=== PATIENT | female | born 1970 | race Caucasian/White ===

== ENCOUNTER 2017-06-23 18:05 | Emergency (ER) | payer MEDICAID ==
[~2017-06-23] VITALS: Ht 160 cm; Wt 53.9 kg
[~2017-06-23 18:05] MED LIST: BUTA1CAP42 PO; CEPH500C5 PO; HYDR-569 PO; ONDA4TAB6 PO; SUCR1ORA2 PO
[2017-06-23 18:59] VITALS: BP 122/71
[2017-06-23 19:59] LABS: CLARITY,URINE CLEAR (Clear); COLOR,URINE YELLOW (Yellow); GLUCOSE, URINE NEGATIVE (Neg); KETONES,URINE NEGATIVE (Neg); LEUKOCYTE ESTERASE ,URINE NEGATIVE (Neg); NITRITES, URINE NEGATIVE (Neg); OCCULT BLOOD,URINE SMALL (Neg); PROTEIN,URINE NEGATIVE (Neg); UROBILINOGEN,URINE 0.2 E.U/dL (0.2-1.0)
[2017-06-23 20:22] LABS: UA COLLECTION TYPE CLN CATCH MIDSTREAM
[2017-06-23 20:43] LABS: BACTERIA,URINE FEW /HPF (Neg); MUCUS STRANDS FEW /LPF (Neg); RBC,URINE 0-2 /HPF (0-2); SQUAMOUS EPITHELIAL CELL,UR FEW /LPF (FEW); WBC,URINE 0-4 /HPF (0-4)
== END 2017-06-24 01:59 | disposition left against medical advice (07) ==
LOC: ER 18:06
DX: R10.9 Unspecified abdominal pain (principal); Z53.21 Procedure and treatment not carried out due to patient leaving prior to being seen by health care provider
CPT/HCPCS: 81001; 99281

== ENCOUNTER 2018-02-09 01:54 | Emergency (ER) | payer MEDICAID ==
[~2018-02-09] VITALS: Ht 162.6 cm; Wt 51.5 kg
[~2018-02-09 01:54] MED LIST changes: -CEPH500C5 PO; +HYDR-4383 PO; -HYDR-569 PO
[2018-02-09] MEDS ORDERED: normal saline 1000ML IV soln IVB ONE (02:20)
[2018-02-09] MEDS ORDERED: morphine 4 MG/ML inj SYRINge IV PRN (02:20)
[2018-02-09] MEDS ORDERED: ondansetron/PF 4mg/2ml inj IV ONE (02:20)
[2018-02-09 03:00] LABS: BASOPHILS % (AUTO) 0.3 % (0-1); EOSINOPHILS # (AUTO) 0.2 X10'3 (0-0.9); EOSINOPHILS % (AUTO) 1.6 % (0-6); HEMATOCRIT 36.6 % (35.0-45.0); HEMOGLOBIN 12.4 g/dl (12.0-16.0); LYMPHOCYTES # (AUTO) 2.1 X10'3 (1.1-4.8); LYMPHOCYTES % (AUTO) 14.3 % (21-51); MEAN CORPUSCULAR HEMOGLOBIN 33.3 PG (27.0-31.0); MEAN CORPUSCULAR HGB CONC 33.8 % (33.0-36.5); MEAN CORPUSCULAR VOLUME 98.5 FL (78-98); MEAN PLATELET VOLUME 8.1 FL (7.4-10.4); MONOCYTES # (AUTO) 0.9 X10'3 (0-0.9); MONOCYTES % (AUTO) 6.4 % (2-12); NEUTROPHILS # (AUTO) 11.5 X10'3 (1.8-7.7); NEUTROPHILS % (AUTO) 77.4 % (42-75); PLATELET COUNT 402 X10'3 (140-440); RED BLOOD COUNT 3.71 X10'6 (4.20-5.60); RED CELL DISTRIBUTION WIDTH 14.7 % (11.5-14.5); WHITE BLOOD COUNT 14.9 X10'3 (4.5-11.0)
[2018-02-09 03:01] LABS: CLARITY,URINE CLEAR (Clear); COLOR,URINE YELLOW (Yellow); GLUCOSE, URINE NEGATIVE (Neg); KETONES,URINE NEGATIVE (Neg); LEUKOCYTE ESTERASE ,URINE SMALL (Neg); NITRITES, URINE NEGATIVE (Neg); OCCULT BLOOD,URINE MODERATE (Neg); PH,URINE 5.5 (4.8-8.0); PROTEIN,URINE NEGATIVE (Neg); UROBILINOGEN,URINE 0.2 E.U/dL (0.2-1.0)
[2018-02-09 03:02] LABS: URINE HCG NEGATIVE (NEG)
[2018-02-09 03:07] LABS: UA COLLECTION TYPE CLN CATCH MIDSTREAM
[2018-02-09 03:08] LABS: SQUAMOUS EPITHELIAL CELL,UR MODERATE /LPF (FEW)
[2018-02-09 03:09] LABS: BACTERIA,URINE FEW /HPF (Neg); MUCUS STRANDS FEW /LPF (Neg); WBC,URINE 30-50 /HPF (0-4)
[2018-02-09 03:12] LABS: ALANINE AMINOTRANSFERASE 23 U/L (12-78); ALBUMIN 3.8 G/DL (3.4-5.0); ALBUMIN/GLOBULIN RATIO 1.1 (1.1-1.5); ALKALINE PHOSPHATASE 147 IU/L (46-116); ANION GAP 14 (8-16); ASPARTATE AMINO TRANSFERASE 21 U/L (10-37); BILIRUBIN,TOTAL 0.2 MG/DL (0.1-1.0); BLOOD UREA NITROGEN 11 MG/DL (7-18); BUN/CREATININE RATIO 10.2 (6.6-38.0); CALCIUM 8.6 MG/DL (8.5-10.1); CHLORIDE 108 MMOL/L (99-107); CREATININE 1.08 MG/DL (0.40-0.90); GLUCOSE 95 MG/DL (70-104); SODIUM 144 MMOL/L (135-145); TOTAL PROTEIN 7.3 G/DL (6.4-8.2); eGFR 54 ML/MIN
[2018-02-09 03:15] LABS: POTASSIUM 2.9 MMOL/L (3.5-5.1)
[2018-02-09] MEDS ORDERED: CefTRIAXone 2gm/D5W 50ml 50 ML IV ONE (03:20)
[2018-02-09] MEDS ORDERED: potassium Cl 20 mEq SR tablet PO ONE (03:20)
[2018-02-09 03:32] LABS: MAGNESIUM 1.8 MG/DL (1.5-2.4)
[2018-02-09] MEDS ORDERED: CEPH-572 PO (03:33)
[2018-02-09] MEDS ORDERED: ONDA4TAB9 PO (03:33)
[2018-02-09] MEDS ORDERED: magnesium hydroxide 30ml (MOM) UD suspension PO ONE (04:05)
[2018-02-09 04:17] VITALS: BP 110/84
[2018-02-09 09:17] LABS: OCCULT BLOOD STOOL NEGATIVE (Neg)
== END 2018-02-09 04:50 | disposition home or self-care (01) ==
LOC: ER 01:54
DX: N39.0 Urinary tract infection, site not specified (principal); E87.6 Hypokalemia; R91.1 Solitary pulmonary nodule; K52.9 Noninfective gastroenteritis and colitis, unspecified; G43.909 Migraine, unspecified, not intractable, without status migrainosus; G89.29 Other chronic pain; Z87.442 Personal history of urinary calculi; Z90.49 Acquired absence of other specified parts of digestive tract; Z90.710 Acquired absence of both cervix and uterus; Z98.890 Other specified postprocedural states
CPT/HCPCS: 36415; 74176; 80053; 81001; 81025; 82272; 83735; 85025; 87088; 96365; 96375; 99285; J0696; J2270; J2405

== ENCOUNTER 2018-03-14 13:09 | Emergency (ER) | payer MEDICAID ==
[~2018-03-14] VITALS: Ht 162.6 cm; Wt 53.0 kg
[2018-03-14 13:20] VITALS: BP 109/74
[2018-03-14] MEDS ORDERED: HYDR-4383 PO (15:34)
== END 2018-03-14 15:44 | disposition home or self-care (01) ==
LOC: ER 13:10
DX: S90.31XA Contusion of right foot, initial encounter (principal); G43.909 Migraine, unspecified, not intractable, without status migrainosus; I10 Essential (primary) hypertension; G89.29 Other chronic pain; Z79.899 Other long term (current) drug therapy; Z87.442 Personal history of urinary calculi; Z87.440 Personal history of urinary (tract) infections; Z90.49 Acquired absence of other specified parts of digestive tract; Z90.710 Acquired absence of both cervix and uterus; W11.XXXA Fall on and from ladder, initial encounter; Y93.89 Activity, other specified; Y92.89 Other specified places as the place of occurrence of the external cause; Y99.8 Other external cause status
CPT/HCPCS: 73630; 99283

== ENCOUNTER 2018-04-07 03:14 | Emergency (ER) | payer MEDICAID ==
[~2018-04-07] VITALS: Ht 160 cm; Wt 53.0 kg
[2018-04-07] MEDS ORDERED: ketorolac trometh inj. 60 MG/2 ML VIAL IM ONE (03:35)
[2018-04-07 03:49] LABS: COLOR,URINE YELLOW (Yellow); GLUCOSE, URINE NEGATIVE (Neg); KETONES,URINE NEGATIVE (Neg); LEUKOCYTE ESTERASE ,URINE LARGE (Neg); NITRITES, URINE NEGATIVE (Neg); OCCULT BLOOD,URINE TRACE-INTACT (Neg); PROTEIN,URINE NEGATIVE (Neg); UA COLLECTION TYPE CLN CATCH MIDSTREAM; UROBILINOGEN,URINE 0.2 E.U/dL (0.2-1.0)
[2018-04-07 03:50] LABS: CLARITY,URINE SLIGHTLY CLOUDY (Clear)
[2018-04-07 03:58] LABS: BACTERIA,URINE 2+ /HPF (Neg); MUCUS STRANDS FEW /LPF (Neg); RBC,URINE 0-2 /HPF (0-2); SQUAMOUS EPITHELIAL CELL,UR MANY /LPF (FEW)
[2018-04-07 04:34] LABS: ALANINE AMINOTRANSFERASE 29 U/L (12-78); ALBUMIN 3.7 G/DL (3.4-5.0); ALKALINE PHOSPHATASE 136 IU/L (46-116); ANION GAP 14 (8-16); ASPARTATE AMINO TRANSFERASE 27 U/L (10-37); BILIRUBIN,TOTAL 0.2 MG/DL (0.1-1.0); BLOOD UREA NITROGEN 9 MG/DL (7-18); BUN/CREATININE RATIO 10.1 (6.6-38.0); CHLORIDE 107 MMOL/L (99-107); CREATININE 0.89 MG/DL (0.40-0.90); GLUCOSE 97 MG/DL (70-104); LIPASE 105 U/L (73-393); POTASSIUM 3.3 MMOL/L (3.5-5.1); SODIUM 144 MMOL/L (135-145); TOTAL CARBON DIOXIDE 23.5 MMOL/L (24-32); TOTAL PROTEIN 7.3 G/DL (6.4-8.2); eGFR 68 ML/MIN
[2018-04-07 04:40] LABS: BASOPHILS % (AUTO) 0.5 % (0-1); EOSINOPHILS # (AUTO) 0.1 X10'3 (0-0.9); HEMATOCRIT 37.7 % (35.0-45.0); HEMOGLOBIN 12.6 g/dl (12.0-16.0); LYMPHOCYTES # (AUTO) 1.9 X10'3 (1.1-4.8); LYMPHOCYTES % (AUTO) 29.6 % (21-51); MEAN CORPUSCULAR HEMOGLOBIN 33.6 PG (27.0-31.0); MEAN CORPUSCULAR HGB CONC 33.4 % (33.0-36.5); MEAN CORPUSCULAR VOLUME 100.6 FL (78-98); MEAN PLATELET VOLUME 8.5 FL (7.4-10.4); MONOCYTES # (AUTO) 0.4 X10'3 (0-0.9); MONOCYTES % (AUTO) 6.3 % (2-12); NEUTROPHILS % (AUTO) 61.6 % (42-75); PLATELET COUNT 381 X10'3 (140-440); RED BLOOD COUNT 3.75 X10'6 (4.20-5.60); RED CELL DISTRIBUTION WIDTH 14.6 % (11.5-14.5); WHITE BLOOD COUNT 6.4 X10'3 (4.5-11.0)
[2018-04-07] MEDS ORDERED: HYDROcodone/acetaminophen 5mg/325mg tablet PO ONE (04:55)
[2018-04-07] MEDS ORDERED: ciprofloxacin 250mg tablet PO ONE (04:55)
[2018-04-07] MEDS ORDERED: potassium Cl 20 mEq SR tablet PO ONE (04:55)
[2018-04-07 04:58] VITALS: BP 116/68
[2018-04-07] MEDS ORDERED: CIPR-230 PO (05:07)
== END 2018-04-07 05:34 | disposition home or self-care (01) ==
LOC: ER 03:15
DX: R10.31 Right lower quadrant pain (principal); R10.10 Upper abdominal pain, unspecified; R31.9 Hematuria, unspecified; R11.2 Nausea with vomiting, unspecified; G43.909 Migraine, unspecified, not intractable, without status migrainosus; I10 Essential (primary) hypertension; G89.29 Other chronic pain; Z90.49 Acquired absence of other specified parts of digestive tract; Z90.710 Acquired absence of both cervix and uterus; Z98.890 Other specified postprocedural states; Z79.899 Other long term (current) drug therapy
CPT/HCPCS: 36415; 74018; 80053; 81001; 83690; 85025; 96372; 99284; J1885

== ENCOUNTER 2018-06-21 00:14 | Emergency (ER) | payer MEDICAID ==
[~2018-06-21] VITALS: Ht 160 cm; Wt 56.2 kg
[2018-06-21 00:50] LABS: COLOR,URINE YELLOW (Yellow); GLUCOSE, URINE NEGATIVE (Neg); KETONES,URINE NEGATIVE (Neg); LEUKOCYTE ESTERASE ,URINE TRACE (Neg); NITRITES, URINE NEGATIVE (Neg); OCCULT BLOOD,URINE TRACE-INTACT (Neg); PH,URINE 5.5 (4.8-8.0); PROTEIN,URINE NEGATIVE (Neg); UROBILINOGEN,URINE 0.2 E.U/dL (0.2-1.0)
[2018-06-21 00:56] LABS: CLARITY,URINE SLIGHTLY CLOUDY (Clear); UA COLLECTION TYPE CLN CATCH MIDSTREAM
[2018-06-21 00:57] LABS: BACTERIA,URINE 1+ /HPF (Neg); RBC,URINE 0-2 /HPF (0-2); SQUAMOUS EPITHELIAL CELL,UR FEW /LPF (FEW)
[2018-06-21 00:58] LABS: MUCUS STRANDS FEW /LPF (Neg); WBC CLUMPS,URINE FEW /HPF (NEGATIVE)
[2018-06-21 00:59] LABS: BASOPHILS # (AUTO) 0.1 X10'3 (0-0.2); BASOPHILS % (AUTO) 0.6 % (0-1); EOSINOPHILS # (AUTO) 0.1 X10'3 (0-0.9); EOSINOPHILS % (AUTO) 0.7 % (0-6); HEMATOCRIT 39.2 % (35.0-45.0); HEMOGLOBIN 13.1 g/dl (12.0-16.0); LYMPHOCYTES # (AUTO) 2.6 X10'3 (1.1-4.8); LYMPHOCYTES % (AUTO) 28.5 % (21-51); MEAN CORPUSCULAR HEMOGLOBIN 33.9 PG (27.0-31.0); MEAN CORPUSCULAR HGB CONC 33.4 g/dL (33.0-36.5); MEAN CORPUSCULAR VOLUME 101.6 FL (78-98); MEAN PLATELET VOLUME 7.9 FL (7.4-10.4); MONOCYTES # (AUTO) 0.6 X10'3 (0-0.9); MONOCYTES % (AUTO) 6.1 % (2-12); NEUTROPHILS # (AUTO) 5.8 X10'3 (1.8-7.7); NEUTROPHILS % (AUTO) 64.1 % (42-75); PLATELET COUNT 368 X10'3 (140-440); RED BLOOD COUNT 3.86 X10'6 (4.20-5.60); RED CELL DISTRIBUTION WIDTH 13.5 % (11.5-14.5); WHITE BLOOD COUNT 9.1 X10'3 (4.5-11.0)
[2018-06-21 00:59] LABS: URINE HCG NEGATIVE (NEG)
[2018-06-21 01:08] LABS: ALANINE AMINOTRANSFERASE 21 U/L (12-78); ALBUMIN 4.1 G/DL (3.4-5.0); ALBUMIN/GLOBULIN RATIO 1.1 (1.1-1.5); ALKALINE PHOSPHATASE 146 IU/L (46-116); AMYLASE 73 U/L (25-115); ANION GAP 10 (8-16); ASPARTATE AMINO TRANSFERASE 19 U/L (10-37); BILIRUBIN,TOTAL 0.2 MG/DL (0.1-1.0); BLOOD UREA NITROGEN 13 MG/DL (7-18); CALCIUM 9.1 MG/DL (8.5-10.1); CHLORIDE 109 MMOL/L (99-107); CREATININE 0.93 MG/DL (0.40-0.90); GLUCOSE 107 MG/DL (70-104); LIPASE 136 U/L (73-393); POTASSIUM 3.5 MMOL/L (3.5-5.1); SODIUM 145 MMOL/L (135-145); TOTAL CARBON DIOXIDE 25.9 MMOL/L (24-32); TOTAL PROTEIN 7.8 G/DL (6.4-8.2); eGFR 64 ML/MIN
[2018-06-21 01:09] LABS: PROTHROMBIN TIME 10.1 SECONDS (9.0-12.0)
[2018-06-21 02:08] LABS: PLATELET ESTIMATE NORMAL
[2018-06-21 02:41] LABS: ETHANOL < 0.010 GM/DL (0.0-0.010)
[2018-06-21 02:46] LABS: URINE AMPHETAMINE SCREEN NEGATIVE (Neg); URINE BARBITUATE SCREEN POSITIVE (Neg); URINE BENZODIAZEPINES SCREEN NEGATIVE (Neg); URINE CANNABINOID SCREEN NEGATIVE (Neg); URINE COCAINE SCREEN NEGATIVE (Neg); URINE METHADONE SCREEN NEGATIVE (Neg); URINE OPIATE SCREEN POSITIVE (Neg); URINE PHENCYCLIDINE SCREEN NEGATIVE (Neg)
[2018-06-21] MEDS ORDERED: normal saline 1000ml 1,000 ML IV ONE (02:57)
[2018-06-21] MEDS ORDERED: normal saline 1000ML IV soln IVB ONE (03:00)
[2018-06-21] MEDS ORDERED: mag hydrox/Alum hydrox/simeth 30ml oral suspension PO ONE (03:00)
[2018-06-21] MEDS: morphine 2 MG/ML inj. syringe IV PRN ×2 (03:09→05:12)
[2018-06-21 03:20] LABS: MAGNESIUM 2.1 MG/DL (1.5-2.4)
[2018-06-21] MEDS ORDERED: dicyclomine 10 MG capsule PO ONE (04:00)
[2018-06-21 05:30] VITALS: BP 133/78
[2018-06-21] MEDS ORDERED: ONDA4TAB6 PO (09:46)
[2018-06-21] MEDS ORDERED: NAPR-56 PO (09:46)
[2018-06-21] MEDS ORDERED: HYDR-4383 PO (09:46)
== END 2018-06-21 05:31 | disposition home or self-care (01) ==
LOC: ER 00:14
DX: R19.5 Other fecal abnormalities (principal); R10.11 Right upper quadrant pain; R19.7 Diarrhea, unspecified; K92.0 Hematemesis; G43.909 Migraine, unspecified, not intractable, without status migrainosus; I10 Essential (primary) hypertension; G89.29 Other chronic pain; Z87.442 Personal history of urinary calculi; Z90.49 Acquired absence of other specified parts of digestive tract; Z90.710 Acquired absence of both cervix and uterus; Z98.890 Other specified postprocedural states; Z79.899 Other long term (current) drug therapy
CPT/HCPCS: 36415; 74018; 80053; 80305; 80320; 81001; 81025; 82150; 83605; 83690; 83735; 85025; 85610; 87088; 96361; 96374; 96376; 99284; J2270; J7030

== ENCOUNTER 2018-06-21 08:16 | Emergency (ER) | payer MEDICAID ==
[~2018-06-21] VITALS: Ht 162.6 cm; Wt 54.5 kg
[2018-06-21] MEDS ORDERED: LORazepam 2 mg/ml vial IV ONE (08:35)
[2018-06-21] MEDS ORDERED: metoclopramide 5 mg/ml inj IV ONE (08:35)
[2018-06-21] MEDS ORDERED: morphine 4 MG/ML inj SYRINge IV PRN (08:35)
[2018-06-21] MEDS ORDERED: ondansetron/PF 4mg/2ml inj IV ONE (08:35)
[2018-06-21] MEDS ORDERED: normal saline 1000ML IV soln IVB ONE (08:35)
[2018-06-21 09:13] LABS: BASOPHILS # (AUTO) 0.1 X10'3 (0-0.2); BASOPHILS % (AUTO) 0.5 % (0-1); EOSINOPHILS # (AUTO) 0.1 X10'3 (0-0.9); EOSINOPHILS % (AUTO) 0.7 % (0-6); HEMATOCRIT 36.8 % (35.0-45.0); HEMOGLOBIN 12.3 g/dl (12.0-16.0); LYMPHOCYTES % (AUTO) 18.8 % (21-51); MEAN CORPUSCULAR HEMOGLOBIN 33.9 PG (27.0-31.0); MEAN CORPUSCULAR HGB CONC 33.4 g/dL (33.0-36.5); MEAN CORPUSCULAR VOLUME 101.6 FL (78-98); MEAN PLATELET VOLUME 7.6 FL (7.4-10.4); MONOCYTES # (AUTO) 0.8 X10'3 (0-0.9); MONOCYTES % (AUTO) 7.8 % (2-12); NEUTROPHILS # (AUTO) 7.6 X10'3 (1.8-7.7); NEUTROPHILS % (AUTO) 72.2 % (42-75); PLATELET COUNT 309 X10'3 (140-440); RED BLOOD COUNT 3.62 X10'6 (4.20-5.60); RED CELL DISTRIBUTION WIDTH 13.6 % (11.5-14.5); WHITE BLOOD COUNT 10.5 X10'3 (4.5-11.0)
[2018-06-21 09:26] LABS: ANION GAP 13 (8-16); BLOOD UREA NITROGEN 8 MG/DL (7-18); BUN/CREATININE RATIO 9.4 (6.6-38.0); CALCIUM 8.4 MG/DL (8.5-10.1); CHLORIDE 110 MMOL/L (99-107); CREATININE 0.85 MG/DL (0.40-0.90); GLUCOSE 85 MG/DL (70-104); SODIUM 143 MMOL/L (135-145); TOTAL CARBON DIOXIDE 20.1 MMOL/L (24-32); eGFR 71 ML/MIN
[2018-06-21 09:27] LABS: ALANINE AMINOTRANSFERASE 22 U/L (12-78); ALBUMIN 3.9 G/DL (3.4-5.0); ALBUMIN/GLOBULIN RATIO 1.1 (1.1-1.5); ALKALINE PHOSPHATASE 128 IU/L (46-116); ASPARTATE AMINO TRANSFERASE 25 U/L (10-37); BILIRUBIN,TOTAL 0.3 MG/DL (0.1-1.0); LIPASE 70 U/L (73-393); TOTAL PROTEIN 7.3 G/DL (6.4-8.2)
[2018-06-21] MEDS ORDERED: potassium Cl oral solution 20 MEQ/15 ML PO ONE (09:35)
[2018-06-21 09:42] VITALS: BP 106/70
[2018-06-21 09:42] LABS: ETHANOL < 0.010 GM/DL (0.0-0.010)
[2018-06-21] MEDS ORDERED: HYDROmorphone 1 mg/ml syringe IV ONE (09:45)
[2018-06-21] MEDS ORDERED: NAPR-56 PO (09:46)
[2018-06-21] MEDS ORDERED: HYDR-4383 PO (09:46)
[2018-06-21] MEDS ORDERED: ONDA4TAB6 PO (09:46)
== END 2018-06-21 10:45 | disposition home or self-care (01) ==
LOC: ER 08:17
DX: R10.13 Epigastric pain (principal); R10.11 Right upper quadrant pain; R11.0 Nausea; G89.29 Other chronic pain; G43.909 Migraine, unspecified, not intractable, without status migrainosus; I10 Essential (primary) hypertension; Z87.442 Personal history of urinary calculi; Z90.49 Acquired absence of other specified parts of digestive tract; Z90.710 Acquired absence of both cervix and uterus; Z98.890 Other specified postprocedural states; Z79.899 Other long term (current) drug therapy
CPT/HCPCS: 36415; 80053; 80320; 83690; 85025; 96374; 96375; 99284; J1170; J2060; J2270; J2405; J2765; J7030

== ENCOUNTER 2018-09-12 02:00 | Emergency (ER) | payer MEDICAID ==
[~2018-09-12] VITALS: Ht 160 cm; Wt 54.5 kg
[2018-09-12 02:27] LABS: CLARITY,URINE SLIGHTLY CLOUDY (Clear); COLOR,URINE YELLOW (Yellow); GLUCOSE, URINE NEGATIVE (Neg); KETONES,URINE NEGATIVE (Neg); LEUKOCYTE ESTERASE ,URINE MODERATE (Neg); NITRITES, URINE NEGATIVE (Neg); OCCULT BLOOD,URINE TRACE-INTACT (Neg); PH,URINE 5.5 (4.8-8.0); PROTEIN,URINE NEGATIVE (Neg); UROBILINOGEN,URINE 0.2 E.U/dL (0.2-1.0)
[2018-09-12 02:28] LABS: UA COLLECTION TYPE CLN CATCH MIDSTREAM; URINE HCG NEGATIVE (NEG)
[2018-09-12 02:33] LABS: BACTERIA,URINE 4+ /HPF (Neg); RBC,URINE 0-2 /HPF (0-2); SQUAMOUS EPITHELIAL CELL,UR MANY /LPF (FEW); WBC,URINE 50-100 /HPF (0-4)
[2018-09-12 02:34] LABS: MUCUS STRANDS FEW /LPF (Neg)
[2018-09-12 02:39] LABS: URINE AMPHETAMINE SCREEN NEGATIVE (Neg); URINE BARBITUATE SCREEN POSITIVE (Neg); URINE BENZODIAZEPINES SCREEN NEGATIVE (Neg); URINE CANNABINOID SCREEN NEGATIVE (Neg); URINE COCAINE SCREEN NEGATIVE (Neg); URINE METHADONE SCREEN NEGATIVE (Neg); URINE OPIATE SCREEN NEGATIVE (Neg); URINE PHENCYCLIDINE SCREEN NEGATIVE (Neg)
[2018-09-12] MEDS ORDERED: LORazepam 2 mg/ml vial IV ONE (02:40)
[2018-09-12] MEDS ORDERED: diphenhydrAMINE 50 mg/ml inj IV ONE (02:40)
[2018-09-12] MEDS ORDERED: metoclopramide 5 mg/ml inj IV ONE (02:40)
[2018-09-12] MEDS ORDERED: HYDROmorphone inj. 0.5 MG/0.5 ML DISP.SYRIN IV PRN (02:40)
[2018-09-12] MEDS ORDERED: normal saline 1000ML IV soln IVB ONE (02:40)
[2018-09-12] MEDS ORDERED: CefTRIAXone 2gm/D5W 50ml 50 ML IV ONE (02:50)
[2018-09-12 02:56] LABS: ALANINE AMINOTRANSFERASE 27 U/L (12-78); ALBUMIN 4.4 G/DL (3.4-5.0); ALBUMIN/GLOBULIN RATIO 1.3 (1.1-1.5); ALKALINE PHOSPHATASE 110 IU/L (46-116); ANION GAP 10 (8-16); ASPARTATE AMINO TRANSFERASE 26 U/L (10-37); BASOPHILS # (AUTO) 0.1 X10'3 (0-0.2); BASOPHILS % (AUTO) 0.8 % (0-1); BILIRUBIN,TOTAL 0.3 MG/DL (0.1-1.0); BLOOD UREA NITROGEN 16 MG/DL (7-18); BUN/CREATININE RATIO 17.6 (6.6-38.0); CALCIUM 9.9 MG/DL (8.5-10.1); CHLORIDE 106 MMOL/L (99-107); CREATININE 0.91 MG/DL (0.40-0.90); EOSINOPHILS # (AUTO) 0.1 X10'3 (0-0.9); EOSINOPHILS % (AUTO) 0.9 % (0-6); GLUCOSE 93 MG/DL (70-104); HEMATOCRIT 36.4 % (35.0-45.0); HEMOGLOBIN 12.3 g/dl (12.0-16.0); LYMPHOCYTES # (AUTO) 2.9 X10'3 (1.1-4.8); LYMPHOCYTES % (AUTO) 37.9 % (21-51); MEAN CORPUSCULAR HEMOGLOBIN 34.5 PG (27.0-31.0); MEAN CORPUSCULAR HGB CONC 33.8 g/dL (33.0-36.5); MEAN CORPUSCULAR VOLUME 101.8 FL (78-98); MEAN PLATELET VOLUME 7.9 FL (7.4-10.4); MONOCYTES # (AUTO) 0.7 X10'3 (0-0.9); MONOCYTES % (AUTO) 9.6 % (2-12); NEUTROPHILS # (AUTO) 3.9 X10'3 (1.8-7.7); NEUTROPHILS % (AUTO) 50.8 % (42-75); PLATELET COUNT 350 X10'3 (140-440); POTASSIUM 3.1 MMOL/L (3.5-5.1); RED BLOOD COUNT 3.58 X10'6 (4.20-5.60); RED CELL DISTRIBUTION WIDTH 13.6 % (11.5-14.5); SODIUM 143 MMOL/L (135-145); TOTAL CARBON DIOXIDE 26.7 MMOL/L (24-32); TOTAL PROTEIN 7.9 G/DL (6.4-8.2); WHITE BLOOD COUNT 7.7 X10'3 (4.5-11.0); eGFR 66 ML/MIN
[2018-09-12] MEDS ORDERED: CEPH500C5 PO (03:02)
[2018-09-12 03:46] VITALS: BP 104/58
== END 2018-09-12 03:47 | disposition home or self-care (01) ==
LOC: ER 02:01
DX: N39.0 Urinary tract infection, site not specified (principal); I10 Essential (primary) hypertension; G43.909 Migraine, unspecified, not intractable, without status migrainosus; G89.29 Other chronic pain; F17.210 Nicotine dependence, cigarettes, uncomplicated; Z79.899 Other long term (current) drug therapy; Z79.2 Long term (current) use of antibiotics; Z87.442 Personal history of urinary calculi; Z87.440 Personal history of urinary (tract) infections; Z90.710 Acquired absence of both cervix and uterus; Z90.49 Acquired absence of other specified parts of digestive tract; Z98.890 Other specified postprocedural states; Z87.19 Personal history of other diseases of the digestive system; Z87.42 Personal history of other diseases of the female genital tract
CPT/HCPCS: 36415; 80053; 80305; 81001; 81025; 85025; 85610; 96365; 96375; 99283; J0696; J1170; J1200; J2060; J2765; J7030

== ENCOUNTER 2018-10-03 04:33 | Emergency (ER) | payer MEDICAID ==
[~2018-10-03] VITALS: Ht 160 cm; Wt 55.0 kg
[~2018-10-03 04:33] MED LIST changes: +CEPH500C5 PO
[2018-10-03 05:26] LABS: CLARITY,URINE SLIGHTLY CLOUDY (Clear); COLOR,URINE STRAW (Yellow); GLUCOSE, URINE NEGATIVE (Neg); KETONES,URINE NEGATIVE (Neg); LEUKOCYTE ESTERASE ,URINE LARGE (Neg); NITRITES, URINE NEGATIVE (Neg); OCCULT BLOOD,URINE TRACE-INTACT (Neg); PROTEIN,URINE NEGATIVE (Neg); UROBILINOGEN,URINE 0.2 E.U/dL (0.2-1.0)
[2018-10-03 05:32] LABS: UA COLLECTION TYPE CLN CATCH MIDSTREAM
[2018-10-03 05:33] LABS: BACTERIA,URINE 2+ /HPF (Neg); RBC,URINE 0-2 /HPF (0-2); SQUAMOUS EPITHELIAL CELL,UR FEW /LPF (FEW); WBC,URINE 20-30 /HPF (0-4)
[2018-10-03 05:34] LABS: MUCUS STRANDS NONE SEEN /LPF (Neg)
[2018-10-03] MEDS ORDERED: CefTRIAXone 1000mg IM Kit (w/lidocaine diluent) IM ONE (05:40)
[2018-10-03] MEDS ORDERED: HYDROcodone/acetaminophen 5mg/325mg tablet PO ONE (05:40)
[2018-10-03] MEDS ORDERED: ketorolac trometh inj. 60 MG/2 ML VIAL IM ONE (05:40)
[2018-10-03] MEDS ORDERED: ondansetron 4mg rapidly disintigrating tab PO ONE ×2 (05:40→06:00)
[2018-10-03 05:59] VITALS: BP 121/69
== END 2018-10-03 06:41 | disposition home or self-care (01) ==
LOC: ER 04:34
DX: R10.9 Unspecified abdominal pain (principal); R11.0 Nausea; G43.909 Migraine, unspecified, not intractable, without status migrainosus; I10 Essential (primary) hypertension; G89.29 Other chronic pain; Z87.442 Personal history of urinary calculi; Z90.49 Acquired absence of other specified parts of digestive tract; Z90.710 Acquired absence of both cervix and uterus; Z98.890 Other specified postprocedural states; Z79.899 Other long term (current) drug therapy
CPT/HCPCS: 81001; 87088; 96372; 99283; J0696; J1885

== ENCOUNTER 2018-10-20 02:13 | Emergency (ER) | payer MEDICAID ==
[~2018-10-20] VITALS: Ht 160 cm; Wt 57.7 kg
[2018-10-20] MEDS ORDERED: normal saline 1000ML IV soln IVB ONE (02:20)
[2018-10-20] MEDS ORDERED: morphine 4 MG/ML inj SYRINge IV PRN (02:20)
[2018-10-20] MEDS ORDERED: ondansetron/PF 4mg/2ml inj IV ONE (02:20)
[2018-10-20] MEDS ORDERED: magnesium hydroxide 30ml (MOM) UD suspension PO ONE (02:30)
[2018-10-20 02:42] LABS: URINE HCG NEGATIVE (NEG)
[2018-10-20 02:52] LABS: ALANINE AMINOTRANSFERASE 31 U/L (12-78); ALBUMIN 4.3 G/DL (3.4-5.0); ALBUMIN/GLOBULIN RATIO 1.2 (1.1-1.5); ALKALINE PHOSPHATASE 125 IU/L (46-116); ANION GAP 13 (8-16); ASPARTATE AMINO TRANSFERASE 18 U/L (10-37); BILIRUBIN,TOTAL 0.3 MG/DL (0.1-1.0); BLOOD UREA NITROGEN 14 MG/DL (7-18); BUN/CREATININE RATIO 12.4 (6.6-38.0); CHLORIDE 106 MMOL/L (99-107); CREATININE 1.13 MG/DL (0.40-0.90); GLUCOSE 85 MG/DL (70-104); LIPASE 132 U/L (73-393); SODIUM 141 MMOL/L (135-145); TOTAL CARBON DIOXIDE 21.7 MMOL/L (24-32); TOTAL PROTEIN 7.9 G/DL (6.4-8.2); eGFR 51 ML/MIN
[2018-10-20 02:58] LABS: CLARITY,URINE CLEAR (Clear); COLOR,URINE YELLOW (Yellow); GLUCOSE, URINE NEGATIVE (Neg); KETONES,URINE NEGATIVE (Neg); LEUKOCYTE ESTERASE ,URINE LARGE (Neg); NITRITES, URINE NEGATIVE (Neg); OCCULT BLOOD,URINE TRACE-INTACT (Neg); PROTEIN,URINE NEGATIVE (Neg); UROBILINOGEN,URINE 0.2 E.U/dL (0.2-1.0)
[2018-10-20 02:58] LABS: BASOPHILS # (AUTO) 0.1 X10'3 (0-0.2); BASOPHILS % (AUTO) 1.4 % (0-1); EOSINOPHILS # (AUTO) 0.1 X10'3 (0-0.9); EOSINOPHILS % (AUTO) 0.6 % (0-6); HEMATOCRIT 39.6 % (35.0-45.0); LYMPHOCYTES # (AUTO) 2.7 X10'3 (1.1-4.8); LYMPHOCYTES % (AUTO) 33.1 % (21-51); MEAN CORPUSCULAR HEMOGLOBIN 34.8 PG (27.0-31.0); MEAN CORPUSCULAR VOLUME 105.5 FL (78-98); MEAN PLATELET VOLUME 7.7 FL (7.4-10.4); MONOCYTES # (AUTO) 0.5 X10'3 (0-0.9); MONOCYTES % (AUTO) 6.3 % (2-12); NEUTROPHILS # (AUTO) 4.8 X10'3 (1.8-7.7); NEUTROPHILS % (AUTO) 58.6 % (42-75); PLATELET COUNT 346 X10'3 (140-440); RED BLOOD COUNT 3.75 X10'6 (4.20-5.60); RED CELL DISTRIBUTION WIDTH 14.6 % (11.5-14.5); WHITE BLOOD COUNT 8.2 X10'3 (4.5-11.0)
[2018-10-20 03:03] LABS: UA COLLECTION TYPE CLN CATCH MIDSTREAM
[2018-10-20 03:04] LABS: BACTERIA,URINE FEW /HPF (Neg); RBC,URINE 0-2 /HPF (0-2); SQUAMOUS EPITHELIAL CELL,UR FEW /LPF (FEW)
[2018-10-20 03:17] VITALS: BP 118/58
[2018-10-20 03:20] LABS: POTASSIUM 2.8 MMOL/L (3.5-5.1)
[2018-10-20] MEDS ORDERED: potassium Cl 10 mEq/100mL bag IV ONE (03:20)
[2018-10-20] MEDS ORDERED: potassium Cl 20 mEq SR tablet PO ONE (03:20)
== END 2018-10-20 03:35 | disposition home or self-care (01) ==
LOC: ER 02:14
DX: G89.29 Other chronic pain (principal); R10.84 Generalized abdominal pain; E87.6 Hypokalemia; G43.909 Migraine, unspecified, not intractable, without status migrainosus; I10 Essential (primary) hypertension; Z87.442 Personal history of urinary calculi; Z90.49 Acquired absence of other specified parts of digestive tract; Z90.710 Acquired absence of both cervix and uterus; Z98.890 Other specified postprocedural states; Z79.899 Other long term (current) drug therapy
CPT/HCPCS: 36415; 80053; 81001; 81025; 83690; 85025; 85610; 87088; 96374; 96375; 99283; J2270; J2405; J7030

== ENCOUNTER 2018-11-06 22:54 | Emergency (ER) | payer MEDICAID ==
[~2018-11-06] VITALS: Ht 162.6 cm; Wt 56.0 kg
--- NOTE | 2018-11-06 23:41 | NUR ---
PT REPORTS SHE GOT UP TO USE THE RESTROOM IN THE LOBBY TO VOMIT AND "PASSED OUT" - C-COLLAR WAS APPLIED AND PT MOVED TO RM 4 - MD AWARE - EKG ORDERED
--- NOTE | 2018-11-06 23:43 | NUR ---
pt had unwitnessed grd level fall in the ER lobby, "I just passed out walking to restroom", no trauma noted to head, pt is alert and oriented, ccollar placed on pt, no numbness/tingling to extremities.
[2018-11-06 23:45] VITALS: BP 129/67
[2018-11-06 23:52] LABS: URINE HCG NEGATIVE (NEG)
[2018-11-06 23:55] LABS: CLARITY,URINE CLEAR (Clear); COLOR,URINE YELLOW (Yellow); GLUCOSE, URINE NEGATIVE (Neg); KETONES,URINE NEGATIVE (Neg); LEUKOCYTE ESTERASE ,URINE NEGATIVE (Neg); NITRITES, URINE NEGATIVE (Neg); OCCULT BLOOD,URINE TRACE-INTACT (Neg); PH,URINE 5.5 (4.8-8.0); PROTEIN,URINE NEGATIVE (Neg); UA COLLECTION TYPE CLN CATCH MIDSTREAM; UROBILINOGEN,URINE 0.2 E.U/dL (0.2-1.0)
[2018-11-06 23:56] LABS: BASOPHILS # (AUTO) 0.1 X10'3 (0-0.2); BASOPHILS % (AUTO) 1.1 % (0-1); EOSINOPHILS % (AUTO) 0.6 % (0-6); HEMATOCRIT 41.1 % (35.0-45.0); HEMOGLOBIN 13.8 g/dl (12.0-16.0); LYMPHOCYTES # (AUTO) 1.6 X10'3 (1.1-4.8); MEAN CORPUSCULAR HEMOGLOBIN 34.8 PG (27.0-31.0); MEAN CORPUSCULAR HGB CONC 33.6 g/dL (33.0-36.5); MEAN CORPUSCULAR VOLUME 103.6 FL (78-98); MEAN PLATELET VOLUME 7.5 FL (7.4-10.4); MONOCYTES # (AUTO) 0.4 X10'3 (0-0.9); MONOCYTES % (AUTO) 8.2 % (2-12); NEUTROPHILS % (AUTO) 59.1 % (42-75); PLATELET COUNT 370 X10'3 (140-440); RED BLOOD COUNT 3.97 X10'6 (4.20-5.60); RED CELL DISTRIBUTION WIDTH 14.5 % (11.5-14.5); WHITE BLOOD COUNT 5.1 X10'3 (4.5-11.0)
[2018-11-07 00:01] LABS: BACTERIA,URINE NONE SEEN /HPF (Neg); MUCUS STRANDS NONE SEEN /LPF (Neg); RBC,URINE 0-2 /HPF (0-2); SQUAMOUS EPITHELIAL CELL,UR FEW /LPF (FEW); WBC,URINE NONE SEEN /HPF (0-4)
[2018-11-07 00:23] LABS: ALANINE AMINOTRANSFERASE 86 U/L (12-78); ALBUMIN 4.6 G/DL (3.4-5.0); ALBUMIN/GLOBULIN RATIO 1.3 (1.1-1.5); ALKALINE PHOSPHATASE 122 IU/L (46-116); ANION GAP 16 (8-16); ASPARTATE AMINO TRANSFERASE 53 U/L (10-37); BILIRUBIN,TOTAL 0.5 MG/DL (0.1-1.0); BLOOD UREA NITROGEN 15 MG/DL (7-18); BUN/CREATININE RATIO 12.6 (6.6-38.0); CALCIUM 9.9 MG/DL (8.5-10.1); CHLORIDE 103 MMOL/L (99-107); CREATININE 1.19 MG/DL (0.40-0.90); GLUCOSE 117 MG/DL (70-104); SODIUM 141 MMOL/L (135-145); TOTAL CARBON DIOXIDE 21.7 MMOL/L (24-32); TOTAL PROTEIN 8.1 G/DL (6.4-8.2); eGFR 48 ML/MIN
[2018-11-07 00:27] LABS: POTASSIUM 2.8 MMOL/L (3.5-5.1)
[2018-11-07] MEDS ORDERED: ESOMEPRAZOLE 40 MG VIAL IV STA (00:42)
[2018-11-07] MEDS ORDERED: potassium Cl 10 mEq/100mL bag IV ONE (00:45)
[2018-11-07] MEDS ORDERED: ondansetron/PF 4mg/2ml inj IV ONE (00:45)
[2018-11-07] MEDS ORDERED: famotidine/PF 10 mg/ml inj IV ONE (00:45)
[2018-11-07] MEDS ORDERED: diphenhydrAMINE 50 mg/ml inj IV ONE (00:45)
[2018-11-07] MEDS ORDERED: metoclopramide 5 mg/ml inj IV ONE (00:45)
[2018-11-07] MEDS ORDERED: magnesium 2GM in 50ml NS 50 ML IV ONE (00:45)
[2018-11-07] MEDS ORDERED: normal saline 1000ML IV soln IVB ONE (00:45)
[2018-11-07 01:03] LABS: TROPONIN I < 0.04 NG/ML (0.0-0.05)
--- NOTE | 2018-11-07 01:36 | NUR ---
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 Patient refused CT and left the ED AMA. IV removed. Patient understand the risks of leaving against medical advise up to and including .
== END 2018-11-07 01:45 | disposition left against medical advice (07) ==
LOC: ER 22:54
DX: K52.9 Noninfective gastroenteritis and colitis, unspecified (principal); G43.909 Migraine, unspecified, not intractable, without status migrainosus; I10 Essential (primary) hypertension; G89.29 Other chronic pain; Z90.49 Acquired absence of other specified parts of digestive tract; Z90.710 Acquired absence of both cervix and uterus; Z98.890 Other specified postprocedural states; Z79.899 Other long term (current) drug therapy
CPT/HCPCS: 36415; 80053; 81001; 81025; 84484; 85025; 85610; 93005; 96374; 96375; 99284; J1200; J2405; J2765; J3475; J3480; J3490; J7030

== ENCOUNTER 2019-02-04 17:47 | Emergency (ER) | payer MEDICAID ==
[~2019-02-04] VITALS: Ht 162.6 cm; Wt 56.8 kg
[2019-02-04] MEDS ORDERED: ondansetron 4mg rapidly disintigrating tab PO ONE (18:25)
[2019-02-04] MEDS ORDERED: ketorolac trometh inj. 60 MG/2 ML VIAL IM ONE (18:25)
[2019-02-04] MEDS ORDERED: morphine 4 MG/ML inj SYRINge IM ONE (18:25)
[2019-02-04] MEDS ORDERED: HYDROcodone/acetaminophen 5mg/325mg tablet PO ONE (20:00)
[2019-02-04 20:24] VITALS: BP 107/81
== END 2019-02-04 20:25 | disposition home or self-care (01) ==
LOC: ER 17:48
DX: S32.040A Wedge compression fracture of fourth lumbar vertebra, initial encounter for closed fracture (principal); M62.830 Muscle spasm of back; G43.909 Migraine, unspecified, not intractable, without status migrainosus; I10 Essential (primary) hypertension; G89.29 Other chronic pain; Z98.890 Other specified postprocedural states; Z90.49 Acquired absence of other specified parts of digestive tract; Z90.710 Acquired absence of both cervix and uterus; Z79.899 Other long term (current) drug therapy; X50.1XXA Overexertion from prolonged static or awkward postures, initial encounter; Y93.89 Activity, other specified; Y92.89 Other specified places as the place of occurrence of the external cause; Y99.9 Unspecified external cause status
CPT/HCPCS: 72131; 96372; 99284; J1885; J2270

== ENCOUNTER 2019-03-07 06:29 | Day surgery (SDC) | payer MEDICAID ==
[2019-03-04 15:28] LABS: BASOPHILS % (AUTO) 0.4 % (0-1); EOSINOPHILS % (AUTO) 0.7 % (0-6); LYMPHOCYTES # (AUTO) 1.4 X10'3 (1.1-4.8); LYMPHOCYTES % (AUTO) 23.1 % (21-51); MEAN CORPUSCULAR HEMOGLOBIN 35.8 PG (27.0-31.0); MEAN CORPUSCULAR HGB CONC 33.7 g/dL (33.0-36.5); MEAN CORPUSCULAR VOLUME 106.1 FL (78-98); MEAN PLATELET VOLUME 7.6 FL (7.4-10.4); MONOCYTES # (AUTO) 0.5 X10'3 (0-0.9); MONOCYTES % (AUTO) 7.3 % (2-12); NEUTROPHILS # (AUTO) 4.3 X10'3 (1.8-7.7); NEUTROPHILS % (AUTO) 68.5 % (42-75); PRE OP HEMATOCRIT 38.9 % (35.0-45.0); PRE OP HEMOGLOBIN 13.1 g/dL (12.0-16.0); PRE OP PLATELET COUNT 330 X10'3 (140-440); RED BLOOD COUNT 3.67 X10'6 (4.20-5.60); RED CELL DISTRIBUTION WIDTH 14.3 % (11.5-14.5)
[2019-03-04 15:42] LABS: ALBUMIN 3.9 G/DL (3.4-5.0); ALBUMIN/GLOBULIN RATIO 1.2 (1.1-1.5); ALKALINE PHOSPHATASE 112 IU/L (46-116); BLOOD UREA NITROGEN 7 MG/DL (7-18); BUN/CREATININE RATIO 9.3 (6.6-38.0); CHLORIDE 107 MMOL/L (99-107); CREATININE 0.75 MG/DL (0.40-0.90); PRE OP ALT 18 U/L (30-65); PRE OP ANION GAP 8 (8-16); PRE OP AST 18 U/L (10-37); PRE OP BILIRUB, TOTAL 0.2 MG/DL (0.0-1.0); PRE OP GLUCOSE 87 MG/DL (70-104); PRE OP SODIUM 143 MMOL/L (135-145); TOTAL CARBON DIOXIDE 28.3 MMOL/L (24-32); TOTAL PROTEIN 7.2 G/DL (6.4-8.2); eGFR 82 ML/MIN
[2019-03-04 15:44] LABS: PRE OP POTASSIUM 3.3 MMOL/L (3.4-5.1)
[~2019-03-07] VITALS: Ht 162.6 cm; Wt 57.4 kg
[2019-03-07] VITALS (14 sets, daily range): BP systolic 89–141; BP diastolic 56–98
[~2019-03-07 06:29] MED LIST changes: +AMYL1CAP57 PO; -BUTA1CAP42 PO; -CEPH500C5 PO; -HYDR-4383 PO; -ONDA4TAB6 PO; +PER5325T PO; -SUCR1ORA2 PO; +albuterol 2.5 MG/3 ML nebule NEB ONE; +cefazolin/dext.iso 2gm/100ml 100 ML IV ONE; +famotidine 20mg tablet PO ONE; +normal saline 1000ml 1,000 ML IV ONE; +ringers solution, lacted 1,000 ML IV SCH
[2019-03-07] MEDS ORDERED: ringers solution, lacted 1,000 ML IV SCH (08:14)
[2019-03-07] MEDS ORDERED: ondansetron/PF 4mg/2ml inj IV PRN (08:15)
[2019-03-07] MEDS ORDERED: proCHLORperazine 10 MG/2 ml inj IV PRN (08:15)
[2019-03-07] MEDS ORDERED: morphine 4 MG/ML inj SYRINge IV PRN ×3 (08:15→10:25)
[2019-03-07] MEDS ORDERED: meperidine/PF 25mg/ml syringe IV PRN ×2 (08:15)
[2019-03-07] MEDS ORDERED: fentaNYL/PF 50MCG/1 ML 2ML syringe ONE (08:37)
[2019-03-07] MEDS ORDERED: midazolam 2 mg/2 ml injection ONE (08:38)
[2019-03-07] MEDS ORDERED: sevoflurane 250ml liquid IH ONE (08:46)
[2019-03-07] MEDS ORDERED: iohexol 300 MG/1 ML 50ml polymer ONE (09:23)
[2019-03-07] MEDS ORDERED: LIDOcaine 1%/PF 5ML 10 MG/ML VIAL ONE (09:23)
[2019-03-07] MEDS ORDERED: rocuronium 10mg/ml inj IV ONE (10:02)
[2019-03-07] MEDS ORDERED: ePHEDrine 50MG/ML INJ. ONE (10:03)
[2019-03-07] MEDS ORDERED: propofol inj 20 ML IV ONE (10:03)
[2019-03-07] MEDS ORDERED: neostigmine methylsulfate 1 MG/ML 10ml vial ONE (10:03)
[2019-03-07] MEDS ORDERED: glycopyrrolate 0.2mg/ml inj ONE (10:03)
--- NOTE | 2019-03-07 10:20 | NUR ---
Received from OR via [facility] , accompanied by Anesthesiologist SARAH and report given by Anesthesiolgist. PATIENT WITH DERMABONDED SITE TO BACK AREA THAT IS CDI. PATIENT WITH 20G PIV INELFT UE RUNNING LR AT 100. PAIN OF 10-10 MEDICATED UPON ARRIVAL. MORE MEDS ORDERED AND PLACED. WILL CONTINUE TO ASSESS AND MEDICATE. Addendum: 03/07/19 at 1035 by Jesse Hardy RN, RN Amended: Links added.
[2019-03-07] MEDS ORDERED: normal saline 1000ml 1,000 ML IV SCH (10:23)
[2019-03-07] MEDS ORDERED: HYDROcodone/acetaminophen 5mg/325mg tablet PO PRN (10:25)
[2019-03-07] MEDS: meperidine/PF 25mg/ml syringe IV PRN ×2 (10:26→10:58)
[2019-03-07] MEDS ORDERED: ketorolac trometh. 30mg/ml inj. IV ONE (10:30)
[2019-03-07] MEDS ORDERED: acetaminophen 1,000mg/100ml IV 100 ML IV ONE (10:30)
[2019-03-07] MEDS ORDERED: HYDROmorphone inj. 0.5 MG/0.5 ML DISP.SYRIN IV PRN ×2 (11:05)
--- NOTE | 2019-03-07 11:30 | NUR ---
ALL CRITERIA FOR TRANSFER TO THE SHORT STAY FLOOR HAS BEEN ACHIEVED. VSS. BED LOW, CALL LIGHT AND VS. SET IN PLACE. RN PRESENT TO ACCEPT CARE. PATIENT RESTING COMFORTABLY IN BED. BELONGINGS SENT WITH PATIENT. DRESSINGS CDI. REPORTED TO YARY RN IN SHORT STAY. PATIENT STATES THAT HER PAIN GOAL IS 5. CURRENTLY AT A 6-10 PAIN IN LUMBAR AREA. Addendum: 03/07/19 at 1138 by Jesse Hardy RN RN Amended: Links added.
== END 2019-03-07 13:30 | disposition home or self-care (01) ==
LOC: PAS 06:29
PROVIDERS: ATTEND Radiology Diagnostic Radiology
DX: S32.048A Other fracture of fourth lumbar vertebra, initial encounter for closed fracture (principal); Z90.710 Acquired absence of both cervix and uterus; Z98.890 Other specified postprocedural states; Z79.899 Other long term (current) drug therapy; F17.210 Nicotine dependence, cigarettes, uncomplicated; Z87.442 Personal history of urinary calculi; Z90.49 Acquired absence of other specified parts of digestive tract; X58.XXXA Exposure to other specified factors, initial encounter; Y93.89 Activity, other specified; Y92.89 Other specified places as the place of occurrence of the external cause; Y99.8 Other external cause status; M54.9 Dorsalgia, unspecified
CPT/HCPCS: 22514; 36415; 80053; 82948; 85025; C1713; J0131; J1170; J1885; J2175; J2250; J2270; J2704; J2710; J3010; J7030; Q9967; A4618; J3490; J7120

== ENCOUNTER 2019-05-05 06:06 | Emergency (ER) | payer MEDICAID ==
[~2019-05-05] VITALS: Ht 162.6 cm; Wt 56.8 kg
[~2019-05-05 06:06] MED LIST changes: -albuterol 2.5 MG/3 ML nebule NEB ONE; -cefazolin/dext.iso 2gm/100ml 100 ML IV ONE; -famotidine 20mg tablet PO ONE; -normal saline 1000ml 1,000 ML IV ONE; -ringers solution, lacted 1,000 ML IV SCH
[2019-05-05] MEDS ORDERED: LORazepam 2 mg/ml vial IV ONE (07:25)
[2019-05-05] MEDS ORDERED: morphine 4 MG/ML inj SYRINge IV ONE (07:25)
--- NOTE | 2019-05-05 08:57 | NUR ---
PT REPORTS PAIN IS BETTER 8/10.
[2019-05-05 09:07] LABS: CLARITY,URINE CLEAR (Clear); COLOR,URINE STRAW (Yellow); GLUCOSE, URINE NEGATIVE (Neg); KETONES,URINE NEGATIVE (Neg); LEUKOCYTE ESTERASE ,URINE NEGATIVE (Neg); NITRITES, URINE NEGATIVE (Neg); OCCULT BLOOD,URINE NEGATIVE (Neg); PH,URINE 5.5 (4.8-8.0); PROTEIN,URINE NEGATIVE (Neg); UA COLLECTION TYPE CLN CATCH MIDSTREAM; UROBILINOGEN,URINE 0.2 E.U/dL (0.2-1.0)
[2019-05-05] MEDS ORDERED: KETAMINE IV ONE (10:25)
[2019-05-05] MEDS ORDERED: OXYC-145 PO (10:25)
[2019-05-05] MEDS ORDERED: NORMAL SALINE IV ONE (10:25)
--- NOTE | 2019-05-05 11:07 | NUR ---
PT DECIDES SHE DOESNT WANT TO WAIT FOR THE KETAMINE, NOTIFY MD AND CANCEL WITH PHARMACY. PT CALLED HER FATHER FOR RIDE HOME.
[2019-05-05 11:11] VITALS: BP 109/77
== END 2019-05-05 11:16 | disposition home or self-care (01) ==
LOC: ER 06:08
DX: G89.29 Other chronic pain (principal); M54.5 Low back pain; G43.909 Migraine, unspecified, not intractable, without status migrainosus; I10 Essential (primary) hypertension; Z87.442 Personal history of urinary calculi; Z90.49 Acquired absence of other specified parts of digestive tract; Z90.710 Acquired absence of both cervix and uterus; Z79.899 Other long term (current) drug therapy
CPT/HCPCS: 72100; 81003; 96374; 96375; 99284; J2060; J2270

== ENCOUNTER 2019-05-24 22:51 | Emergency (ER) | payer MEDICAID ==
[~2019-05-24] VITALS: Ht 162.6 cm; Wt 59.0 kg
[~2019-05-24 22:51] MED LIST changes: +OXYC-145 PO
[2019-05-24 22:57] VITALS: BP 136/79
[2019-05-25 00:13] LABS: CLARITY,URINE CLEAR (Clear); COLOR,URINE YELLOW (Yellow); GLUCOSE, URINE NEGATIVE (Neg); KETONES,URINE NEGATIVE (Neg); LEUKOCYTE ESTERASE ,URINE NEGATIVE (Neg); NITRITES, URINE NEGATIVE (Neg); OCCULT BLOOD,URINE SMALL (Neg); PROTEIN,URINE NEGATIVE (Neg); UROBILINOGEN,URINE 0.2 E.U/dL (0.2-1.0)
[2019-05-25 00:14] LABS: UA COLLECTION TYPE CLN CATCH MIDSTREAM
[2019-05-25 00:18] LABS: URINE HCG NEGATIVE (NEG)
[2019-05-25] MEDS ORDERED: famotidine 20mg tablet PO ONE (00:30)
[2019-05-25] MEDS ORDERED: pantoprazole 40mg Tablet.DR PO ONE (00:30)
[2019-05-25] MEDS ORDERED: ondansetron 4mg rapidly disintigrating tab PO ONE (00:30)
[2019-05-25] MEDS ORDERED: FAMO20TA44 PO (00:36)
[2019-05-25] MEDS ORDERED: ONDA4TAB6 PO (00:36)
[2019-05-25 00:44] LABS: BACTERIA,URINE FEW /HPF (Neg); MUCUS STRANDS FEW /LPF (Neg); RBC,URINE 0-2 /HPF (0-2); SQUAMOUS EPITHELIAL CELL,UR FEW /LPF (FEW); WBC,URINE 0-4 /HPF (0-4)
== END 2019-05-25 00:50 | disposition home or self-care (01) ==
LOC: ER 22:53
DX: B34.9 Viral infection, unspecified (principal); G43.909 Migraine, unspecified, not intractable, without status migrainosus; I10 Essential (primary) hypertension; G89.29 Other chronic pain; Z87.442 Personal history of urinary calculi; Z90.49 Acquired absence of other specified parts of digestive tract; Z90.710 Acquired absence of both cervix and uterus; Z79.899 Other long term (current) drug therapy
CPT/HCPCS: 81001; 81025; 87502; 87503; 99284

== ENCOUNTER 2019-07-19 19:17 | Emergency (ER) | payer MEDICAID ==
[~2019-07-19] VITALS: Ht 160 cm; Wt 59.1 kg
[~2019-07-19 19:17] MED LIST changes: +FAMO20TA44 PO; +ONDA4TAB6 PO
[2019-07-19] MEDS ORDERED: TAM75C PO (19:38)
[2019-07-19] MEDS ORDERED: BENZ-16 PO (19:38)
[2019-07-19] MEDS ORDERED: ALBU8.5H8 INH (19:38)
[2019-07-19] MEDS ORDERED: ONDA4TAB6 PO (19:38)
--- NOTE | 2019-07-19 19:58 | NUR ---
pt was dc and walking to her car and she said she got dizzy and passed out striking her right parietal skull to pavement. Unknown if LOC. Pt only c/o head hurting where she landed. No other injuries/c/o anything. Pt moved onto w/c and she is AOx4. TANI Reyna made aware. Pt moved to room 2.
[2019-07-19] MEDS ORDERED: ringers solution, lacted 1,000 ML IV ONE (20:00)
[2019-07-19] MEDS ORDERED: normal saline 1000ml 1,000 ML IV ONE (20:00)
--- NOTE | 2019-07-19 20:00 | NUR ---
PT WAS DISCHARGED AND WALKING TO HER CAR, PT STATES SHE BECAME DIZZY AND PASSED OUT ONTO THE CONCRETE. PT ENDORSES CONTINUTING NAUSEA AND CHEST PAIN. NO BLOOD THINNERS. PT AOX4. LOST CONSCIOUSNESS FOR 2 MINUTES. NO OPEN WOUNDS OR BLEEDING IDENTIFIED. TANI COLIN MADE AWARE AND JORDEN OF PT FALL OCCURANCE.
[2019-07-19 20:35] LABS: BASOPHILS % (AUTO) 0.4 % (0-1); EOSINOPHILS % (AUTO) 0.6 % (0-6); HEMATOCRIT 36.8 % (35.0-45.0); HEMOGLOBIN 12.5 g/dl (12.0-16.0); LYMPHOCYTES # (AUTO) 1.3 X10'3 (1.1-4.8); MEAN CORPUSCULAR HEMOGLOBIN 35.4 PG (27.0-31.0); MEAN CORPUSCULAR HGB CONC 33.8 g/dL (33.0-36.5); MEAN CORPUSCULAR VOLUME 104.7 FL (78-98); MEAN PLATELET VOLUME 7.7 FL (7.4-10.4); MONOCYTES # (AUTO) 0.4 X10'3 (0-0.9); MONOCYTES % (AUTO) 8.2 % (2-12); NEUTROPHILS # (AUTO) 2.7 X10'3 (1.8-7.7); NEUTROPHILS % (AUTO) 60.8 % (42-75); PLATELET COUNT 322 X10'3 (140-440); RED BLOOD COUNT 3.52 X10'6 (4.20-5.60); RED CELL DISTRIBUTION WIDTH 14.3 % (11.5-14.5); WHITE BLOOD COUNT 4.5 X10'3 (4.5-11.0)
[2019-07-19 20:45] LABS: PARTIAL THROMBOPLASTIN TIME 26 SECONDS (22-32)
[2019-07-19 20:50] LABS: ALANINE AMINOTRANSFERASE 21 U/L (12-78); ALBUMIN 4.3 G/DL (3.4-5.0); ALBUMIN/GLOBULIN RATIO 1.3 (1.1-1.5); ALKALINE PHOSPHATASE 111 IU/L (46-116); ANION GAP 11 (8-16); ASPARTATE AMINO TRANSFERASE 20 U/L (10-37); BILIRUBIN,TOTAL 0.2 MG/DL (0.1-1.0); BLOOD UREA NITROGEN 9 MG/DL (7-18); CALCIUM 9.2 MG/DL (8.5-10.1); CHLORIDE 106 MMOL/L (99-107); CREATININE 0.82 MG/DL (0.40-0.90); ETHANOL < 0.010 GM/DL (0.0-0.010); GLUCOSE 111 MG/DL (70-104); SODIUM 143 MMOL/L (135-145); TOTAL CARBON DIOXIDE 25.8 MMOL/L (24-32); TOTAL PROTEIN 7.6 G/DL (6.4-8.2); eGFR 74 ML/MIN
[2019-07-19 20:53] LABS: POTASSIUM 2.6 MMOL/L (3.5-5.1)
[2019-07-19] MEDS ORDERED: potassium Cl 10 mEq/100mL bag IV ONE (20:55)
[2019-07-19] MEDS ORDERED: potassium Cl 20 mEq SR tablet PO ONE (20:55)
[2019-07-19] MEDS ORDERED: POTA20TA19 PO (21:37)
[2019-07-19 21:42] LABS: CLARITY,URINE CLEAR (Clear); COLOR,URINE STRAW (Yellow); GLUCOSE, URINE NEGATIVE (Neg); KETONES,URINE NEGATIVE (Neg); LEUKOCYTE ESTERASE ,URINE NEGATIVE (Neg); NITRITES, URINE NEGATIVE (Neg); OCCULT BLOOD,URINE TRACE-LYSED (Neg); PROTEIN,URINE NEGATIVE (Neg); UROBILINOGEN,URINE 0.2 E.U/dL (0.2-1.0)
[2019-07-19 21:46] LABS: UA COLLECTION TYPE CLN CATCH MIDSTREAM
[2019-07-19 21:49] LABS: BACTERIA,URINE FEW /HPF (Neg); MUCUS STRANDS NONE SEEN /LPF (Neg); RBC,URINE 0-2 /HPF (0-2); SQUAMOUS EPITHELIAL CELL,UR FEW /LPF (FEW); WBC,URINE 0-4 /HPF (0-4)
[2019-07-19 21:52] LABS: URINE AMPHETAMINE SCREEN NEGATIVE (Neg); URINE BARBITUATE SCREEN POSITIVE (Neg); URINE BENZODIAZEPINES SCREEN NEGATIVE (Neg); URINE CANNABINOID SCREEN NEGATIVE (Neg); URINE COCAINE SCREEN NEGATIVE (Neg); URINE METHADONE SCREEN NEGATIVE (Neg); URINE OPIATE SCREEN NEGATIVE (Neg); URINE PHENCYCLIDINE SCREEN NEGATIVE (Neg)
[2019-07-19] MEDS ORDERED: magnesium hydroxide 30ml (MOM) UD suspension PO ONE (21:55)
[2019-07-19] MEDS ORDERED: morphine 4 MG/ML inj SYRINge IV ONE (21:55)
[2019-07-19] MEDS ORDERED: ondansetron/PF 4mg/2ml inj IV ONE (22:20)
[2019-07-19 23:01] VITALS: BP 115/72
== END 2019-07-19 22:50 | disposition home or self-care (01) ==
LOC: ER 19:17
DX: F07.81 Postconcussional syndrome (principal); E87.6 Hypokalemia; R11.2 Nausea with vomiting, unspecified; R05 Cough; G43.909 Migraine, unspecified, not intractable, without status migrainosus; I10 Essential (primary) hypertension; J44.9 Chronic obstructive pulmonary disease, unspecified; G89.29 Other chronic pain; R79.1 Abnormal coagulation profile; Z87.442 Personal history of urinary calculi; Z90.49 Acquired absence of other specified parts of digestive tract; Z90.710 Acquired absence of both cervix and uterus; Z72.89 Other problems related to lifestyle; Z98.890 Other specified postprocedural states; Z79.899 Other long term (current) drug therapy
CPT/HCPCS: 36415; 70450; 71045; 80053; 80305; 80320; 81001; 85025; 85610; 85730; 93005; 96361; 96365; 96375; 99285; J2270; J2405; J3480; J7030; J7120

== ENCOUNTER 2019-07-20 10:26 | Emergency (ER) | payer MEDICAID ==
[~2019-07-20] VITALS: Ht 160 cm; Wt 59.1 kg
[~2019-07-20 10:26] MED LIST changes: +ALBU8.5H8 INH; +BENZ-16 PO; +POTA20TA19 PO; +TAM75C PO
[2019-07-20 10:27] VITALS: BP 129/85
== END 2019-07-20 11:20 | disposition home or self-care (01) ==
LOC: ER 10:27
DX: G43.909 Migraine, unspecified, not intractable, without status migrainosus (principal); I10 Essential (primary) hypertension; J44.9 Chronic obstructive pulmonary disease, unspecified; G89.29 Other chronic pain; Z87.442 Personal history of urinary calculi; Z90.49 Acquired absence of other specified parts of digestive tract; Z90.710 Acquired absence of both cervix and uterus; Z72.89 Other problems related to lifestyle; Z98.890 Other specified postprocedural states; Z79.899 Other long term (current) drug therapy
CPT/HCPCS: 99284

== ENCOUNTER 2020-03-06 19:41 | Inpatient (IN) | payer MEDICAID ==
[~2020-03-06] VITALS: Ht 162.6 cm; Wt 69.6 kg
[2020-03-06] MEDS: normal saline 1000ml 1,000 ML IV SCH (04:30)
[~2020-03-06 19:41] MED LIST changes: -POTA20TA19 PO; -TAM75C PO
[2020-03-06] MEDS ORDERED: morphine 4 MG/ML inj SYRINge IM ONE (20:10)
[2020-03-06] MEDS ORDERED: ondansetron/PF 4mg/2ml inj IV ONE ×2 (20:10→21:35)
--- NOTE | 2020-03-06 20:25 | NUR ---
Pt transported to the CT scan and x-ray, via gurney with the side rails raised.
[2020-03-06 20:26] LABS: BASOPHILS % (AUTO) 0.8 % (0-1); EOSINOPHILS % (AUTO) 0.6 % (0-6); HEMATOCRIT 38.3 % (35.0-45.0); HEMOGLOBIN 12.9 g/dl (12.0-16.0); LYMPHOCYTES # (AUTO) 1.3 X10'3 (1.1-4.8); LYMPHOCYTES % (AUTO) 25.4 % (21-51); MEAN CORPUSCULAR HEMOGLOBIN 35.9 PG (27.0-31.0); MEAN CORPUSCULAR HGB CONC 33.6 g/dL (33.0-36.5); MEAN CORPUSCULAR VOLUME 106.8 FL (78-98); MEAN PLATELET VOLUME 7.4 FL (7.4-10.4); MONOCYTES # (AUTO) 0.4 X10'3 (0-0.9); MONOCYTES % (AUTO) 7.9 % (2-12); NEUTROPHILS # (AUTO) 3.4 X10'3 (1.8-7.7); NEUTROPHILS % (AUTO) 65.3 % (42-75); PLATELET COUNT 344 X10'3 (140-440); RED BLOOD COUNT 3.59 X10'6 (4.20-5.60); RED CELL DISTRIBUTION WIDTH 13.7 % (11.5-14.5); WHITE BLOOD COUNT 5.3 X10'3 (4.5-11.0)
[2020-03-06 20:35] LABS: ALANINE AMINOTRANSFERASE 17 U/L (12-78); ALBUMIN 4.4 G/DL (3.4-5.0); ALBUMIN/GLOBULIN RATIO 1.3 (1.1-1.5); ALKALINE PHOSPHATASE 139 IU/L (46-116); ANION GAP 10 (8-16); ASPARTATE AMINO TRANSFERASE 19 U/L (10-37); BILIRUBIN,TOTAL 0.2 MG/DL (0.1-1.0); BLOOD UREA NITROGEN 12 MG/DL (7-18); BUN/CREATININE RATIO 14.6 (6.6-38.0); CALCIUM 8.9 MG/DL (8.5-10.1); CHLORIDE 104 MMOL/L (99-107); CREATININE 0.82 MG/DL (0.40-0.90); GLUCOSE 102 MG/DL (70-104); POTASSIUM 3.7 MMOL/L (3.5-5.1); SODIUM 138 MMOL/L (135-145); TOTAL CARBON DIOXIDE 24.1 MMOL/L (24-32); TOTAL PROTEIN 7.9 G/DL (6.4-8.2); eGFR 74 ML/MIN
[2020-03-06 20:42] LABS: MAGNESIUM 2.2 MG/DL (1.5-2.4)
--- NOTE | 2020-03-06 20:51 | NUR ---
Pt returned from CT scan via gurney with the side rails raised. Pt reports she is feeling only mild improvement in her pain level at this time.
[2020-03-06 21:33] LABS: CLARITY,URINE CLEAR (Clear); COLOR,URINE STRAW (Yellow); GLUCOSE, URINE NEGATIVE (Neg); KETONES,URINE NEGATIVE (Neg); LEUKOCYTE ESTERASE ,URINE NEGATIVE (Neg); NITRITES, URINE NEGATIVE (Neg); OCCULT BLOOD,URINE TRACE-INTACT (Neg); PROTEIN,URINE NEGATIVE (Neg); UROBILINOGEN,URINE 0.2 E.U/dL (0.2-1.0)
[2020-03-06] MEDS ORDERED: morphine 4 MG/ML inj SYRINge IV ONE (21:35)
--- NOTE | 2020-03-06 21:35 | NUR ---
Pt reports the pain is severe and is requesting additional medication. Provider is aware of the pain level.
[2020-03-06 21:38] LABS: D-DIMER 0.33 MG/L FEU (0-0.50)
[2020-03-06 21:48] LABS: UA COLLECTION TYPE CLN CATCH MIDSTREAM
[2020-03-06 21:50] LABS: BACTERIA,URINE NONE SEEN /HPF (Neg); RBC,URINE 0-2 /HPF (0-2); SQUAMOUS EPITHELIAL CELL,UR FEW /LPF (FEW); WBC,URINE NONE SEEN /HPF (0-4)
[2020-03-06] MEDS ORDERED: HYDR-3972 PO (21:57)
[2020-03-06] MEDS ORDERED: BUTA1TAB54 PO (21:57)
[2020-03-06] MEDS ORDERED: ALEN70TA80 PO (21:57)
[2020-03-06] MEDS ORDERED: mag hydrox/Alum hydrox/simeth 30ml oral suspension PO PRN (22:50)
[2020-03-06] MEDS ORDERED: magnesium hydroxide 30ml (MOM) UD suspension PO PRN (22:50)
[2020-03-06] MEDS ORDERED: acetaminophen 325mg tablet PO PRN ×2 (22:50)
[2020-03-06] MEDS ORDERED: morphine 2 MG/ML inj. syringe IV PRN (22:50)
[2020-03-06] MEDS ORDERED: HYDROcodone/acetaminophen 5mg/325mg tablet PO PRN (22:50)
[2020-03-07] MEDS: ondansetron/PF 4mg/2ml inj IV PRN ×2 (00:17→08:06)
[2020-03-07] MEDS: morphine 2 MG/ML inj. syringe IV PRN ×5 (00:18→16:00)
--- NOTE | 2020-03-07 00:44 | NUR ---
in bed, resting comfortably, respirations even
--- NOTE | 2020-03-07 01:50 | NUR ---
Pt given a turkey sandwich and crackers
--- NOTE | 2020-03-07 04:11 | NUR ---
Received patient report for Aaron AUSTIN in the ER. Patient will brought to Neuro and go in room 4012B.
[2020-03-07 04:30] VITALS: BP 106/58
--- NOTE | 2020-03-07 05:14 | NUR ---
Patient up walking around the unit with no problems.
[2020-03-07] MEDS: HYDROcodone/acetaminophen 10/325mg tab PO PRN ×3 (05:46→14:30)
[2020-03-07 06:06] LABS: BASOPHILS # (AUTO) 0.1 X10'3 (0-0.2); BASOPHILS % (AUTO) 1.2 % (0-1); EOSINOPHILS % (AUTO) 0.8 % (0-6); HEMATOCRIT 36.4 % (35.0-45.0); HEMOGLOBIN 12.2 g/dl (12.0-16.0); LYMPHOCYTES # (AUTO) 1.8 X10'3 (1.1-4.8); LYMPHOCYTES % (AUTO) 28.7 % (21-51); MEAN CORPUSCULAR HEMOGLOBIN 35.9 PG (27.0-31.0); MEAN CORPUSCULAR HGB CONC 33.4 g/dL (33.0-36.5); MEAN CORPUSCULAR VOLUME 107.5 FL (78-98); MEAN PLATELET VOLUME 7.6 FL (7.4-10.4); MONOCYTES # (AUTO) 0.6 X10'3 (0-0.9); MONOCYTES % (AUTO) 10.3 % (2-12); NEUTROPHILS # (AUTO) 3.7 X10'3 (1.8-7.7); PLATELET COUNT 359 X10'3 (140-440); RED BLOOD COUNT 3.39 X10'6 (4.20-5.60); RED CELL DISTRIBUTION WIDTH 13.5 % (11.5-14.5); WHITE BLOOD COUNT 6.2 X10'3 (4.5-11.0)
--- NOTE | 2020-03-07 06:10 | NUR ---
Patient in room ORTHO 4012. I have received report from Carmen and had the opportunity to ask questions and assume patient care.
--- NOTE | 2020-03-07 06:12 | NUR ---
Problems reprioritized. Patient report given, questions answered & plan of care reviewed with Cheyenne AUSTIN.
[2020-03-07 06:23] LABS: ANION GAP 10 (8-16); BLOOD UREA NITROGEN 11 MG/DL (7-18); CALCIUM 8.7 MG/DL (8.5-10.1); CHLORIDE 105 MMOL/L (99-107); CREATININE 0.92 MG/DL (0.40-0.90); GLUCOSE 115 MG/DL (70-104); POTASSIUM 3.4 MMOL/L (3.5-5.1); SODIUM 138 MMOL/L (135-145); TOTAL CARBON DIOXIDE 23.4 MMOL/L (24-32); eGFR 65 ML/MIN
[2020-03-07] MEDS ORDERED: LIPASE/PROTEASE/AMYLASE 10,500 units CAPSULE.DR PO SCH (07:30)
[2020-03-07] MEDS: CREON 24,000 UNITS PO SCH ×2 (07:57→12:43)
[2020-03-07] MEDS ORDERED: butalbital/acetaminophen/caffeine (Fioricet) tablet PO SCH (08:00)
[2020-03-07] MEDS ORDERED: docusate sod 100mg capsule PO SCH (08:00)
[2020-03-07] MEDS ORDERED: HYDROcodone/acetaminophen 10/325mg tab PO PRN (08:00)
[2020-03-07] MEDS: normal saline 1000ml 1,000 ML IV SCH ×2 (08:50→14:32)
[2020-03-07 09:00] VITALS: BP_SYST 104; BP_SYST 112; BP_SYST 95; BP_DIAS 58; BP_DIAS 65; BP_DIAS 68
[2020-03-07 10:04] VITALS: BP 104/58
[2020-03-07] MEDS ORDERED: potassium CL 10mEq/100ml bag 100 ML IV PRN (12:40)
[2020-03-07] MEDS ORDERED: potassium Cl 20 mEq SR tablet PO PRN ×2 (12:40)
[2020-03-07] MEDS ORDERED: magnesium 4gm in 100ml NS 100 ML IV PRN (12:40)
[2020-03-07] MEDS ORDERED: magnesium Cl slow-release 64mg tablet PO PRN (12:40)
[2020-03-07] MEDS ORDERED: pneumococcal 23-VAL P-sac vacc 25 mcg/0.5ml vial IMVAC ONE (16:05)
--- NOTE | 2020-03-07 16:44 | NUR ---
PAGER ID: [phone] MESSAGE: Cheyenne Benjamin on neuro, Ms. Chávez in [phone] wishes to leave AMA, citing family issues
[2020-03-07] MEDS ORDERED: POTA20TA19 PO (16:55)
--- NOTE | 2020-03-07 17:00 | NUR ---
Spoke with hospitalist who agreed to see pt. Per hospitalist, he will discharge pt. Reviewed discharge with pt. Pt agreed to wait. Pt gathered all of her belongings, dressed herself and was walked downstairs to be driven home by a friend. Pt is alert, oriented and not c/o pain at this time.
== END 2020-03-07 17:30 | disposition home or self-care (01) | DRG 204 ==
LOC: ER 19:41 → ED HOLD 22:48 → ORTHO 4S 03-07 04:15
PROVIDERS: ADMIT Internal Medicine; ATTEND Family Medicine
DX: R55 Syncope and collapse (principal); E87.6 Hypokalemia; G89.29 Other chronic pain; I10 Essential (primary) hypertension; J44.9 Chronic obstructive pulmonary disease, unspecified; K50.90 Crohn's disease, unspecified, without complications; M81.0 Age-related osteoporosis without current pathological fracture; M48.54XA Collapsed vertebra, not elsewhere classified, thoracic region, initial encounter for fracture; Z90.710 Acquired absence of both cervix and uterus; Z87.442 Personal history of urinary calculi; W18.39XA Other fall on same level, initial encounter; Y93.89 Activity, other specified; Y92.89 Other specified places as the place of occurrence of the external cause; Y99.8 Other external cause status; Z28.21 Immunization not carried out because of patient refusal
CPT/HCPCS: 36415; 70450; 71045; 72125; 72128; 72131; 80048; 80053; 81001; 83735; 83880; 84484; 85025; 85379; 87081; 93005; 93880; 96374; 99285; G0378; J2270; J2405; J7030

== ENCOUNTER 2020-03-26 21:18 | Emergency (ER) | payer MEDICAID ==
[~2020-03-26] VITALS: Ht 162.6 cm; Wt 65.9 kg
[~2020-03-26 21:18] MED LIST changes: -ALBU8.5H8 INH; +ALEN70TA80 PO; -BENZ-16 PO; +BUTA1TAB54 PO; -FAMO20TA44 PO; +HYDR-3972 PO; -ONDA4TAB6 PO; -OXYC-145 PO; -PER5325T PO; +POTA20TA19 PO
[2020-03-26] MEDS ORDERED: diazepam 5mg tablet PO ONE (22:15)
--- NOTE | 2020-03-26 23:10 | NUR ---
pt states that pain is getting worse. ed pa good made aware of pt complaint. no new orders at this time. will continue to monitor
[2020-03-26] MEDS ORDERED: fentaNYL/PF 50MCG/1 ML 2ML syringe IV ONE (23:25)
[2020-03-27 00:18] VITALS: BP 108/77
== END 2020-03-27 00:06 | disposition home or self-care (01) ==
LOC: ER 21:18
DX: G89.29 Other chronic pain (principal); M54.5 Low back pain; G43.909 Migraine, unspecified, not intractable, without status migrainosus; J44.9 Chronic obstructive pulmonary disease, unspecified; Z87.442 Personal history of urinary calculi; Z87.440 Personal history of urinary (tract) infections; Z90.89 Acquired absence of other organs; Z90.49 Acquired absence of other specified parts of digestive tract; Z90.710 Acquired absence of both cervix and uterus; Z98.890 Other specified postprocedural states; Z72.89 Other problems related to lifestyle; Z79.899 Other long term (current) drug therapy
CPT/HCPCS: 72131; 72192; 96374; 99285; J3010

== ENCOUNTER 2020-05-06 10:13 | Emergency (ER) | payer MEDICAID ==
[~2020-05-06] VITALS: Ht 162.6 cm; Wt 68.3 kg
[2020-05-06] MEDS ORDERED: ondansetron/PF 4mg/2ml inj IV ONE (10:45)
[2020-05-06] MEDS ORDERED: normal saline 1000ML IV soln IVB ONE (10:45)
[2020-05-06] MEDS ORDERED: morphine 4 MG/ML inj SYRINge IV PRN (10:45)
[2020-05-06 10:50] LABS: BASOPHILS # (AUTO) 0.1 X10'3 (0-0.2); BASOPHILS % (AUTO) 1.6 % (0-1); EOSINOPHILS % (AUTO) 0.7 % (0-6); HEMATOCRIT 38.7 % (35.0-45.0); HEMOGLOBIN 13.3 g/dl (12.0-16.0); LYMPHOCYTES # (AUTO) 1.3 X10'3 (1.1-4.8); LYMPHOCYTES % (AUTO) 19.8 % (21-51); MEAN CORPUSCULAR HEMOGLOBIN 36.7 PG (27.0-31.0); MEAN CORPUSCULAR HGB CONC 34.3 g/dL (33.0-36.5); MEAN CORPUSCULAR VOLUME 107.2 FL (78-98); MONOCYTES # (AUTO) 0.5 X10'3 (0-0.9); NEUTROPHILS # (AUTO) 4.5 X10'3 (1.8-7.7); NEUTROPHILS % (AUTO) 69.9 % (42-75); PLATELET COUNT 331 X10'3 (140-440); RED BLOOD COUNT 3.61 X10'6 (4.20-5.60); WHITE BLOOD COUNT 6.5 X10'3 (4.5-11.0)
[2020-05-06 10:50] LABS: URINE HCG NEGATIVE (NEG)
[2020-05-06 10:52] LABS: CLARITY,URINE SLIGHTLY CLOUDY (Clear); COLOR,URINE STRAW (Yellow); GLUCOSE, URINE NEGATIVE (Neg); KETONES,URINE NEGATIVE (Neg); LEUKOCYTE ESTERASE ,URINE SMALL (Neg); NITRITES, URINE NEGATIVE (Neg); OCCULT BLOOD,URINE TRACE-INTACT (Neg); PROTEIN,URINE NEGATIVE (Neg); UROBILINOGEN,URINE 0.2 E.U/dL (0.2-1.0)
[2020-05-06 10:56] LABS: UA COLLECTION TYPE CLN CATCH MIDSTREAM
[2020-05-06] MEDS ORDERED: iohexol 350MG/ML 100ml bottle IV ONE (10:57)
[2020-05-06 10:58] LABS: BACTERIA,URINE 1+ /HPF (Neg); RBC,URINE 0-2 /HPF (0-2); SQUAMOUS EPITHELIAL CELL,UR MANY /LPF (FEW)
[2020-05-06 10:59] LABS: ALANINE AMINOTRANSFERASE 27 U/L (12-78); ALBUMIN 4.4 G/DL (3.4-5.0); ALBUMIN/GLOBULIN RATIO 1.2 (1.1-1.5); ALKALINE PHOSPHATASE 118 IU/L (46-116); ANION GAP 13 (8-16); ASPARTATE AMINO TRANSFERASE 20 U/L (10-37); BILIRUBIN,TOTAL 0.4 MG/DL (0.1-1.0); BLOOD UREA NITROGEN 9 MG/DL (7-18); BUN/CREATININE RATIO 9.5 (6.6-38.0); CALCIUM 8.7 MG/DL (8.5-10.1); CHLORIDE 101 MMOL/L (99-107); CREATININE 0.95 MG/DL (0.40-0.90); GLUCOSE 105 MG/DL (70-104); LIPASE 57 U/L (73-393); POTASSIUM 3.2 MMOL/L (3.5-5.1); SODIUM 139 MMOL/L (135-145); TOTAL PROTEIN 8.1 G/DL (6.4-8.2); eGFR 62 ML/MIN
--- NOTE | 2020-05-06 11:10 | NUR ---
back from ct scan via gurney in stable condition
[2020-05-06] MEDS ORDERED: fentaNYL/PF 50MCG/1 ML 2ML syringe IV ONE ×2 (11:50→13:45)
[2020-05-06] MEDS ORDERED: ONDA4TAB6 PO (11:52)
[2020-05-06] MEDS ORDERED: DICY10CA88 PO (11:52)
[2020-05-06] MEDS ORDERED: CIPR-259 PO (11:52)
[2020-05-06] MEDS ORDERED: METR500T PO (11:52)
[2020-05-06] MEDS ORDERED: HYDR-3964 PO (11:52)
[2020-05-06 14:11] VITALS: BP 134/86
== END 2020-05-06 14:13 | disposition home or self-care (01) ==
LOC: ER 10:14
DX: K52.9 Noninfective gastroenteritis and colitis, unspecified (principal); R11.2 Nausea with vomiting, unspecified; R10.84 Generalized abdominal pain; K59.00 Constipation, unspecified; G43.909 Migraine, unspecified, not intractable, without status migrainosus; I10 Essential (primary) hypertension; J44.9 Chronic obstructive pulmonary disease, unspecified; G89.29 Other chronic pain; Z87.442 Personal history of urinary calculi; Z87.440 Personal history of urinary (tract) infections; Z90.89 Acquired absence of other organs; Z90.49 Acquired absence of other specified parts of digestive tract; Z90.710 Acquired absence of both cervix and uterus; Z98.890 Other specified postprocedural states; Z72.89 Other problems related to lifestyle; Z79.2 Long term (current) use of antibiotics; Z79.899 Other long term (current) drug therapy
CPT/HCPCS: 36415; 74174; 80053; 81001; 81025; 83605; 83690; 85025; 96361; 96374; 96375; 96376; 99285; J2270; J2405; J3010; J7030; Q9967

== ENCOUNTER 2020-05-26 10:59 | Emergency (ER) | payer MEDICAID ==
[~2020-05-26] VITALS: Ht 160 cm; Wt 66.2 kg
[~2020-05-26 10:59] MED LIST changes: +DICY10CA88 PO; +HYDR-3964 PO; +ONDA4TAB6 PO
[2020-05-26 12:29] LABS: BASOPHILS % (AUTO) 0.4 % (0-1); EOSINOPHILS % (AUTO) 0.3 % (0-6); HEMATOCRIT 43.4 % (35.0-45.0); HEMOGLOBIN 14.7 g/dl (12.0-16.0); LYMPHOCYTES # (AUTO) 1.4 X10'3 (1.1-4.8); LYMPHOCYTES % (AUTO) 12.8 % (21-51); MEAN CORPUSCULAR HGB CONC 33.9 g/dL (33.0-36.5); MEAN CORPUSCULAR VOLUME 106.1 FL (78-98); MEAN PLATELET VOLUME 7.5 FL (7.4-10.4); MONOCYTES # (AUTO) 0.5 X10'3 (0-0.9); MONOCYTES % (AUTO) 4.9 % (2-12); NEUTROPHILS # (AUTO) 8.8 X10'3 (1.8-7.7); NEUTROPHILS % (AUTO) 81.6 % (42-75); PLATELET COUNT 422 X10'3 (140-440); RED BLOOD COUNT 4.09 X10'6 (4.20-5.60); RED CELL DISTRIBUTION WIDTH 14.1 % (11.5-14.5); WHITE BLOOD COUNT 10.8 X10'3 (4.5-11.0)
[2020-05-26 12:47] LABS: ALANINE AMINOTRANSFERASE 29 U/L (12-78); ALBUMIN 5.1 G/DL (3.4-5.0); ALBUMIN/GLOBULIN RATIO 1.3 (1.1-1.5); ALKALINE PHOSPHATASE 136 IU/L (46-116); ANION GAP 15 (8-16); ASPARTATE AMINO TRANSFERASE 26 U/L (10-37); BILIRUBIN,TOTAL 0.6 MG/DL (0.1-1.0); BLOOD UREA NITROGEN 14 MG/DL (7-18); BUN/CREATININE RATIO 11.2 (6.6-38.0); CALCIUM 9.6 MG/DL (8.5-10.1); CHLORIDE 104 MMOL/L (99-107); CREATININE 1.25 MG/DL (0.40-0.90); GLUCOSE 106 MG/DL (70-104); LIPASE 71 U/L (73-393); POTASSIUM 3.7 MMOL/L (3.5-5.1); SODIUM 141 MMOL/L (135-145); TOTAL CARBON DIOXIDE 21.8 MMOL/L (24-32); TOTAL PROTEIN 8.9 G/DL (6.4-8.2); eGFR 45 ML/MIN
--- NOTE | 2020-05-26 14:26 | NUR ---
awaiting for ed provider.
[2020-05-26 14:43] LABS: URINE HCG NEGATIVE (NEG)
[2020-05-26] MEDS ORDERED: morphine 4 MG/ML inj SYRINge IV ONE ×2 (14:45→15:55)
[2020-05-26] MEDS ORDERED: dicyclomine 10 MG capsule PO ONE (14:45)
[2020-05-26] MEDS ORDERED: normal saline 1000ML IV soln IVB ONE (14:45)
[2020-05-26] MEDS ORDERED: mag hydrox/Alum hydrox/simeth 30ml oral suspension PO ONE (14:45)
[2020-05-26 14:46] LABS: ETHANOL < 0.010 GM/DL (0.0-0.010)
[2020-05-26 14:50] LABS: URINE AMPHETAMINE SCREEN NEGATIVE (Neg); URINE BARBITUATE SCREEN POSITIVE (Neg); URINE BENZODIAZEPINES SCREEN NEGATIVE (Neg); URINE CANNABINOID SCREEN NEGATIVE (Neg); URINE COCAINE SCREEN NEGATIVE (Neg); URINE METHADONE SCREEN NEGATIVE (Neg); URINE OPIATE SCREEN POSITIVE (Neg); URINE PHENCYCLIDINE SCREEN POSITIVE (Neg)
[2020-05-26 15:57] LABS: CLARITY,URINE CLOUDY (Clear); COLOR,URINE YELLOW (Yellow); GLUCOSE, URINE NEGATIVE (Neg); KETONES,URINE NEGATIVE (Neg); LEUKOCYTE ESTERASE ,URINE TRACE (Neg); NITRITES, URINE NEGATIVE (Neg); OCCULT BLOOD,URINE TRACE-INTACT (Neg); PROTEIN,URINE 30 mg/dl (Neg); UROBILINOGEN,URINE 0.2 E.U/dL (0.2-1.0)
[2020-05-26 16:00] LABS: UA COLLECTION TYPE CLN CATCH MIDSTREAM
[2020-05-26 16:04] LABS: HYALINE CASTS >30 /LPF (NEGATIVE); MUCUS STRANDS MANY /LPF (Neg); SQUAMOUS EPITHELIAL CELL,UR MANY /LPF (FEW)
[2020-05-26 16:06] LABS: TRANSITIONAL EPI CELLS,URINE FEW /HPF
[2020-05-26 16:07] LABS: BACTERIA,URINE 4+ /HPF (Neg); WBC,URINE 0-4 /HPF (0-4)
--- NOTE | 2020-05-26 16:16 | NUR ---
patient requesting prn for acid reflux,Stephen pepe.
[2020-05-26] MEDS ORDERED: ONDA4TAB6 PO (16:26)
[2020-05-26] MEDS ORDERED: FAMO20TA8 PO (16:26)
[2020-05-26] MEDS ORDERED: calcium carbonate 500mg chew tablet PO STA (16:35)
[2020-05-26 16:47] VITALS: BP 122/83
== END 2020-05-26 16:50 | disposition home or self-care (01) ==
LOC: ER 11:00
DX: R10.84 Generalized abdominal pain (principal); R19.7 Diarrhea, unspecified; R19.00 Intra-abdominal and pelvic swelling, mass and lump, unspecified site; I10 Essential (primary) hypertension; J44.9 Chronic obstructive pulmonary disease, unspecified; G89.29 Other chronic pain; Z86.61 Personal history of infections of the central nervous system; Z90.49 Acquired absence of other specified parts of digestive tract; Z79.899 Other long term (current) drug therapy; Z87.440 Personal history of urinary (tract) infections; Z87.442 Personal history of urinary calculi; Z90.710 Acquired absence of both cervix and uterus
CPT/HCPCS: 36415; 74018; 80053; 80305; 80320; 81001; 81025; 83690; 85025; 96361; 96374; 96376; 99285; J2270; J7030; 96375

== ENCOUNTER 2020-08-13 09:52 | Emergency (ER) | payer MEDICAID ==
[~2020-08-13] VITALS: Ht 162.6 cm; Wt 61.2 kg
[~2020-08-13 09:52] MED LIST changes: -DICY10CA88 PO; +FAMO20TA8 PO; -HYDR-3964 PO
[2020-08-13 10:41] LABS: BASOPHILS % (AUTO) 1.1 % (0-1); EOSINOPHILS # (AUTO) 0.1 X10'3 (0-0.9); EOSINOPHILS % (AUTO) 1.2 % (0-6); HEMATOCRIT 41.6 % (35.0-45.0); HEMOGLOBIN 13.9 g/dl (12.0-16.0); LYMPHOCYTES # (AUTO) 1.6 X10'3 (1.1-4.8); LYMPHOCYTES % (AUTO) 36.6 % (21-51); MEAN CORPUSCULAR HEMOGLOBIN 36.5 PG (27.0-31.0); MEAN CORPUSCULAR HGB CONC 33.4 g/dL (33.0-36.5); MEAN CORPUSCULAR VOLUME 109.1 FL (78-98); MEAN PLATELET VOLUME 7.4 FL (7.4-10.4); MONOCYTES # (AUTO) 0.4 X10'3 (0-0.9); MONOCYTES % (AUTO) 9.1 % (2-12); NEUTROPHILS # (AUTO) 2.3 X10'3 (1.8-7.7); PLATELET COUNT 383 X10'3 (140-440); RED BLOOD COUNT 3.81 X10'6 (4.20-5.60); RED CELL DISTRIBUTION WIDTH 14.8 % (11.5-14.5); WHITE BLOOD COUNT 4.3 X10'3 (4.5-11.0)
[2020-08-13 10:41] LABS: CLARITY,URINE SLIGHTLY CLOUDY (Clear); COLOR,URINE YELLOW (Yellow); GLUCOSE, URINE NEGATIVE (Neg); KETONES,URINE NEGATIVE (Neg); LEUKOCYTE ESTERASE ,URINE SMALL (Neg); NITRITES, URINE NEGATIVE (Neg); OCCULT BLOOD,URINE SMALL (Neg); PROTEIN,URINE NEGATIVE (Neg); UROBILINOGEN,URINE 0.2 E.U/dL (0.2-1.0)
[2020-08-13 10:43] LABS: UA COLLECTION TYPE CLN CATCH MIDSTREAM
[2020-08-13 10:45] LABS: ALANINE AMINOTRANSFERASE 42 U/L (12-78); ALBUMIN 4.6 G/DL (3.4-5.0); ALBUMIN/GLOBULIN RATIO 1.3 (1.1-1.5); ALKALINE PHOSPHATASE 145 IU/L (46-116); ANION GAP 13 (8-16); ASPARTATE AMINO TRANSFERASE 32 U/L (10-37); BILIRUBIN,TOTAL 0.5 MG/DL (0.1-1.0); BLOOD UREA NITROGEN 14 MG/DL (7-18); BUN/CREATININE RATIO 13.1 (6.6-38.0); CALCIUM 8.7 MG/DL (8.5-10.1); CHLORIDE 105 MMOL/L (99-107); CREATININE 1.07 MG/DL (0.40-0.90); GLUCOSE 144 MG/DL (70-104); LIPASE 82 U/L (73-393); POTASSIUM 3.7 MMOL/L (3.5-5.1); SODIUM 140 MMOL/L (135-145); TOTAL CARBON DIOXIDE 22.4 MMOL/L (24-32); TOTAL PROTEIN 8.2 G/DL (6.4-8.2); eGFR 54 ML/MIN
[2020-08-13 10:48] LABS: WBC,URINE 0-4 /HPF (0-4)
[2020-08-13 10:49] LABS: BACTERIA,URINE 2+ /HPF (Neg); MUCUS STRANDS FEW /LPF (Neg); RBC,URINE 0-2 /HPF (0-2); SQUAMOUS EPITHELIAL CELL,UR MANY /LPF (FEW)
[2020-08-13] MEDS ORDERED: ketorolac trometh. 30mg/ml inj. IV ONE (11:50)
[2020-08-13] MEDS: morphine 4 MG/ML inj SYRINge IV ONE ×2 (12:03→13:14)
[2020-08-13] MEDS: ondansetron/PF 4mg/2ml inj IV ONE (12:03)
[2020-08-13] MEDS: normal saline 1000ml 1,000 ML IV ONE (12:04)
[2020-08-13] MEDS: ketorolac tromethamine 15mg/ml inj. IV ONE (12:14)
[2020-08-13] MEDS ORDERED: ONDA4TAB6 PO (13:02)
[2020-08-13] MEDS ORDERED: DICY10CA88 PO (13:02)
[2020-08-13] MEDS ORDERED: HYDR-3965 PO (13:02)
[2020-08-13] MEDS: famotidine/PF 10 mg/ml inj IV ONE (13:15)
[2020-08-13] MEDS: mag hydrox/Alum hydrox/simeth 30ml oral suspension PO ONE (13:15)
[2020-08-13] MEDS: acetaminophen 325mg tablet PO ONE (13:15)
[2020-08-13] MEDS: pantoprazole 40 MG vial IV ONE (13:24)
[2020-08-13 14:15] VITALS: BP 145/78
== END 2020-08-13 14:16 | disposition home or self-care (01) ==
LOC: ER 09:53
DX: K52.9 Noninfective gastroenteritis and colitis, unspecified (principal); R10.84 Generalized abdominal pain; R14.0 Abdominal distension (gaseous); R11.2 Nausea with vomiting, unspecified; G43.909 Migraine, unspecified, not intractable, without status migrainosus; I10 Essential (primary) hypertension; J44.9 Chronic obstructive pulmonary disease, unspecified; G89.29 Other chronic pain; Z87.442 Personal history of urinary calculi; Z87.440 Personal history of urinary (tract) infections; Z90.89 Acquired absence of other organs; Z90.49 Acquired absence of other specified parts of digestive tract; Z90.710 Acquired absence of both cervix and uterus; Z98.890 Other specified postprocedural states; Z72.89 Other problems related to lifestyle; Z79.899 Other long term (current) drug therapy
CPT/HCPCS: 36415; 74176; 80053; 81001; 83605; 83690; 85025; 96374; 96375; 96376; 99284; C9113; J1885; J2270; J2405; J3490; J7030

== ENCOUNTER 2020-09-22 03:45 | Emergency (ER) | payer MEDICAID ==
[~2020-09-22] VITALS: Ht 162.6 cm; Wt 66.9 kg
[~2020-09-22 03:45] MED LIST changes: +DICY10CA88 PO
[2020-09-22] MEDS ORDERED: morphine 10mg/ml inj. IV ONE (04:50)
[2020-09-22] MEDS ORDERED: ondansetron/PF 4mg/2ml inj IV ONE (04:50)
[2020-09-22 05:03] LABS: BASOPHILS # (AUTO) 0.1 X10'3 (0-0.2); BASOPHILS % (AUTO) 0.7 % (0-1); EOSINOPHILS % (AUTO) 0.7 % (0-6); HEMATOCRIT 40.4 % (35.0-45.0); HEMOGLOBIN 13.7 g/dl (12.0-16.0); LYMPHOCYTES % (AUTO) 29.2 % (21-51); MEAN CORPUSCULAR HEMOGLOBIN 36.6 PG (27.0-31.0); MEAN CORPUSCULAR HGB CONC 33.9 g/dL (33.0-36.5); MEAN PLATELET VOLUME 7.2 FL (7.4-10.4); MONOCYTES # (AUTO) 0.7 X10'3 (0-0.9); MONOCYTES % (AUTO) 10.4 % (2-12); NEUTROPHILS # (AUTO) 4.1 X10'3 (1.8-7.7); PLATELET COUNT 395 X10'3 (140-440); RED BLOOD COUNT 3.74 X10'6 (4.20-5.60); RED CELL DISTRIBUTION WIDTH 13.8 % (11.5-14.5)
[2020-09-22 05:06] LABS: ALANINE AMINOTRANSFERASE 36 U/L (12-78); ALBUMIN 4.7 G/DL (3.4-5.0); ALBUMIN/GLOBULIN RATIO 1.3 (1.1-1.5); ALKALINE PHOSPHATASE 131 IU/L (46-116); ANION GAP 16 (8-16); ASPARTATE AMINO TRANSFERASE 28 U/L (10-37); BILIRUBIN,TOTAL 0.4 MG/DL (0.1-1.0); BLOOD UREA NITROGEN 18 MG/DL (7-18); CALCIUM 9.3 MG/DL (8.5-10.1); CHLORIDE 105 MMOL/L (99-107); GLUCOSE 108 MG/DL (70-104); LIPASE 115 U/L (73-393); POTASSIUM 3.2 MMOL/L (3.5-5.1); SODIUM 138 MMOL/L (135-145); TOTAL PROTEIN 8.3 G/DL (6.4-8.2); eGFR 58 ML/MIN
[2020-09-22 05:52] VITALS: BP 145/103
[2020-09-22 06:10] LABS: URINE HCG NEGATIVE (NEG)
[2020-09-22 06:29] LABS: CLARITY,URINE CLEAR (Clear); COLOR,URINE YELLOW (Yellow); GLUCOSE, URINE NEGATIVE (Neg); KETONES,URINE NEGATIVE (Neg); LEUKOCYTE ESTERASE ,URINE TRACE (Neg); NITRITES, URINE NEGATIVE (Neg); OCCULT BLOOD,URINE SMALL (Neg); PROTEIN,URINE NEGATIVE (Neg); UROBILINOGEN,URINE 0.2 E.U/dL (0.2-1.0)
[2020-09-22 06:30] LABS: UA COLLECTION TYPE CLN CATCH MIDSTREAM
[2020-09-22 06:40] LABS: BACTERIA,URINE FEW /HPF (Neg); RBC,URINE 0-2 /HPF (0-2); SQUAMOUS EPITHELIAL CELL,UR NONE SEEN /LPF (FEW); WBC,URINE 0-4 /HPF (0-4)
[2020-09-22] MEDS ORDERED: haloperidol lactate 5mg/ml inj IM ONE (06:40)
[2020-09-22] MEDS ORDERED: diphenhydrAMINE 50 mg/ml inj IV ONE (06:40)
[2020-09-22] MEDS ORDERED: oxyCODONE/APAP 5-325mg tablet PO ONE (06:45)
== END 2020-09-22 07:06 | disposition home or self-care (01) ==
LOC: ER 03:46
DX: R10.84 Generalized abdominal pain (principal); G89.29 Other chronic pain; R11.2 Nausea with vomiting, unspecified; G43.909 Migraine, unspecified, not intractable, without status migrainosus; I10 Essential (primary) hypertension; J44.9 Chronic obstructive pulmonary disease, unspecified; Z87.442 Personal history of urinary calculi; Z87.440 Personal history of urinary (tract) infections; Z90.89 Acquired absence of other organs; Z90.49 Acquired absence of other specified parts of digestive tract; Z90.710 Acquired absence of both cervix and uterus; Z98.890 Other specified postprocedural states; Z72.89 Other problems related to lifestyle; Z79.899 Other long term (current) drug therapy
CPT/HCPCS: 36415; 74176; 80053; 81001; 81025; 83690; 85025; 87088; 96374; 96375; 99284; J1200; J2270; J2405; 83605

== ENCOUNTER 2020-10-09 21:09 | Emergency (ER) | payer MEDICAID ==
[~2020-10-09] VITALS: Ht 162.6 cm; Wt 65.9 kg
[2020-10-09] MEDS ORDERED: ondansetron/PF 4mg/2ml inj IV STA (21:13)
[2020-10-09] MEDS ORDERED: normal saline 1000ml 1,000 ML IVB ONE (21:15)
[2020-10-09 21:36] LABS: COLOR,URINE YELLOW (Yellow); GLUCOSE, URINE NEGATIVE (Neg); KETONES,URINE NEGATIVE (Neg); LEUKOCYTE ESTERASE ,URINE MODERATE (Neg); NITRITES, URINE NEGATIVE (Neg); OCCULT BLOOD,URINE SMALL (Neg); PROTEIN,URINE NEGATIVE (Neg); UROBILINOGEN,URINE 0.2 E.U/dL (0.2-1.0)
[2020-10-09 21:41] LABS: CLARITY,URINE SLIGHTLY CLOUDY (Clear); UA COLLECTION TYPE CLN CATCH MIDSTREAM
[2020-10-09 21:42] LABS: BACTERIA,URINE FEW /HPF (Neg); RBC,URINE 0-2 /HPF (0-2); SQUAMOUS EPITHELIAL CELL,UR FEW /LPF (FEW)
[2020-10-09 21:45] LABS: BASOPHILS # (AUTO) 0.1 X10'3 (0-0.2); BASOPHILS % (AUTO) 0.6 % (0-1); EOSINOPHILS % (AUTO) 0.3 % (0-6); HEMATOCRIT 37.1 % (35.0-45.0); HEMOGLOBIN 12.6 g/dl (12.0-16.0); LYMPHOCYTES # (AUTO) 2.1 X10'3 (1.1-4.8); LYMPHOCYTES % (AUTO) 18.9 % (21-51); MEAN CORPUSCULAR HEMOGLOBIN 36.6 PG (27.0-31.0); MEAN CORPUSCULAR HGB CONC 33.9 g/dL (33.0-36.5); MEAN PLATELET VOLUME 7.8 FL (7.4-10.4); MONOCYTES % (AUTO) 8.9 % (2-12); NEUTROPHILS % (AUTO) 71.3 % (42-75); PLATELET COUNT 328 X10'3 (140-440); RED BLOOD COUNT 3.43 X10'6 (4.20-5.60); RED CELL DISTRIBUTION WIDTH 13.6 % (11.5-14.5); WHITE BLOOD COUNT 11.2 X10'3 (4.5-11.0)
[2020-10-09 21:55] LABS: ALANINE AMINOTRANSFERASE 26 U/L (12-78); ALBUMIN 4.2 G/DL (3.4-5.0); ALBUMIN/GLOBULIN RATIO 1.2 (1.1-1.5); ALKALINE PHOSPHATASE 120 IU/L (46-116); ANION GAP 10 (8-16); ASPARTATE AMINO TRANSFERASE 16 U/L (10-37); BILIRUBIN,TOTAL 0.2 MG/DL (0.1-1.0); BLOOD UREA NITROGEN 23 MG/DL (7-18); BUN/CREATININE RATIO 18.9 (6.6-38.0); CALCIUM 8.8 MG/DL (8.5-10.1); CHLORIDE 107 MMOL/L (99-107); CREATININE 1.22 MG/DL (0.40-0.90); GLUCOSE 98 MG/DL (70-104); LIPASE 144 U/L (73-393); SODIUM 142 MMOL/L (135-145); TOTAL CARBON DIOXIDE 24.6 MMOL/L (24-32); TOTAL PROTEIN 7.6 G/DL (6.4-8.2); eGFR 46 ML/MIN
[2020-10-09] MEDS ORDERED: potassium Cl 20 mEq SR tablet PO ONE ×2 (22:40)
[2020-10-09] MEDS ORDERED: normal saline 1000ml 1,000 ML IV ONE (23:15)
[2020-10-09] MEDS ORDERED: morphine 4 MG/ML inj SYRINge IV ONE (23:15)
[2020-10-09] MEDS ORDERED: ondansetron/PF 4mg/2ml inj IV ONE (23:15)
[2020-10-10] MEDS ORDERED: ONDA4TAB6 PO (00:48)
[2020-10-10] MEDS ORDERED: FLO0.4C PO (00:48)
[2020-10-10] MEDS ORDERED: HYDR-3965 PO (00:48)
[2020-10-10] MEDS ORDERED: NITR100C6 PO (00:48)
[2020-10-10 00:50] VITALS: BP 120/79
== END 2020-10-10 01:01 | disposition home or self-care (01) ==
LOC: ER 21:09
DX: N20.0 Calculus of kidney (principal); N39.0 Urinary tract infection, site not specified; R31.9 Hematuria, unspecified; G43.909 Migraine, unspecified, not intractable, without status migrainosus; J44.9 Chronic obstructive pulmonary disease, unspecified; G89.29 Other chronic pain; Z90.49 Acquired absence of other specified parts of digestive tract; Z90.710 Acquired absence of both cervix and uterus; Z72.89 Other problems related to lifestyle; Z98.890 Other specified postprocedural states; Z79.899 Other long term (current) drug therapy
CPT/HCPCS: 36415; 74176; 80053; 81001; 83690; 85025; 87088; 96361; 96374; 96375; 99284; J2270; J2405; J7030

== ENCOUNTER 2020-11-03 06:31 | Emergency (ER) | payer MEDICAID ==
[~2020-11-03] VITALS: Ht 160 cm; Wt 63.6 kg
[~2020-11-03 06:31] MED LIST changes: +FLO0.4C PO; +NITR100C6 PO
[2020-11-03 07:26] LABS: BASOPHILS % (AUTO) 0.5 % (0-1); EOSINOPHILS # (AUTO) 0.1 X10'3 (0-0.9); EOSINOPHILS % (AUTO) 0.7 % (0-6); HEMOGLOBIN 13.7 g/dl (12.0-16.0); LYMPHOCYTES # (AUTO) 1.8 X10'3 (1.1-4.8); LYMPHOCYTES % (AUTO) 23.4 % (21-51); MEAN CORPUSCULAR HEMOGLOBIN 36.8 PG (27.0-31.0); MEAN CORPUSCULAR HGB CONC 34.3 g/dL (33.0-36.5); MEAN CORPUSCULAR VOLUME 107.4 FL (78-98); MEAN PLATELET VOLUME 7.4 FL (7.4-10.4); MONOCYTES # (AUTO) 0.8 X10'3 (0-0.9); MONOCYTES % (AUTO) 10.7 % (2-12); NEUTROPHILS # (AUTO) 5.1 X10'3 (1.8-7.7); NEUTROPHILS % (AUTO) 64.7 % (42-75); PLATELET COUNT 353 X10'3 (140-440); RED BLOOD COUNT 3.72 X10'6 (4.20-5.60); RED CELL DISTRIBUTION WIDTH 13.3 % (11.5-14.5); WHITE BLOOD COUNT 7.8 X10'3 (4.5-11.0)
[2020-11-03 07:41] LABS: ALBUMIN 4.4 G/DL (3.4-5.0); ANION GAP 13 (8-16); BILIRUBIN,TOTAL 0.3 MG/DL (0.1-1.0); BLOOD UREA NITROGEN 18 MG/DL (7-18); BUN/CREATININE RATIO 20.9 (6.6-38.0); CALCIUM 9.2 MG/DL (8.5-10.1); CHLORIDE 103 MMOL/L (99-107); CREATININE 0.86 MG/DL (0.40-0.90); GLUCOSE 105 MG/DL (70-104); POTASSIUM 3.7 MMOL/L (3.5-5.1); SODIUM 140 MMOL/L (135-145); TOTAL CARBON DIOXIDE 23.8 MMOL/L (24-32); TOTAL PROTEIN 7.9 G/DL (6.4-8.2); eGFR 70 ML/MIN
[2020-11-03 07:42] LABS: ALANINE AMINOTRANSFERASE 62 U/L (12-78); ALBUMIN/GLOBULIN RATIO 1.3 (1.1-1.5); ALKALINE PHOSPHATASE 131 IU/L (46-116); ASPARTATE AMINO TRANSFERASE 33 U/L (10-37); LIPASE 133 U/L (73-393)
[2020-11-03 09:05] LABS: URINE HCG NEGATIVE (NEG)
[2020-11-03 10:02] VITALS: BP 143/98
[2020-11-03 10:36] LABS: ETHANOL < 0.010 GM/DL (0.0-0.010)
[2020-11-03 11:21] LABS: URINE AMPHETAMINE SCREEN NEGATIVE (Neg); URINE BARBITUATE SCREEN POSITIVE (Neg); URINE BENZODIAZEPINES SCREEN NEGATIVE (Neg); URINE CANNABINOID SCREEN NEGATIVE (Neg); URINE COCAINE SCREEN NEGATIVE (Neg); URINE METHADONE SCREEN NEGATIVE (Neg); URINE OPIATE SCREEN POSITIVE (Neg); URINE PHENCYCLIDINE SCREEN NEGATIVE (Neg)
== END 2020-11-03 11:36 | disposition home or self-care (01) ==
LOC: ER 06:32
DX: R19.7 Diarrhea, unspecified (principal); R14.0 Abdominal distension (gaseous); K92.1 Melena; G43.909 Migraine, unspecified, not intractable, without status migrainosus; I10 Essential (primary) hypertension; J44.9 Chronic obstructive pulmonary disease, unspecified; G89.29 Other chronic pain; F17.200 Nicotine dependence, unspecified, uncomplicated; Z87.442 Personal history of urinary calculi; Z87.440 Personal history of urinary (tract) infections; Z90.89 Acquired absence of other organs; Z94.9 Transplanted organ and tissue status, unspecified; Z90.710 Acquired absence of both cervix and uterus; Z98.890 Other specified postprocedural states; Z72.89 Other problems related to lifestyle; Z79.899 Other long term (current) drug therapy
CPT/HCPCS: 36415; 80053; 80305; 80320; 81025; 83690; 85025; 99283

== ENCOUNTER 2021-03-05 12:52 | Emergency (ER) | payer MEDICAID ==
[~2021-03-05] VITALS: Ht 162.6 cm; Wt 63.6 kg
[~2021-03-05 12:52] MED LIST changes: -FLO0.4C PO; +POTA-207 PO; -POTA20TA19 PO
[2021-03-05 13:19] VITALS: BP 144/87
[2021-03-05] MEDS ORDERED: ondansetron 4mg rapidly disintigrating tab PO ONE (16:10)
[2021-03-05] MEDS ORDERED: morphine 4 MG/ML inj SYRINge IM ONE (16:10)
[2021-03-05] MEDS ORDERED: ketorolac tromethamine 15mg/ml inj. IM ONE (16:45)
[2021-03-05] MEDS ORDERED: ORPH100T2 PO (17:00)
== END 2021-03-05 17:11 | disposition home or self-care (01) ==
LOC: ER 12:52
DX: M54.50 Low back pain, unspecified (principal); G89.29 Other chronic pain; G43.909 Migraine, unspecified, not intractable, without status migrainosus; I10 Essential (primary) hypertension; J44.9 Chronic obstructive pulmonary disease, unspecified; Z87.442 Personal history of urinary calculi; Z87.440 Personal history of urinary (tract) infections; Z90.89 Acquired absence of other organs; Z90.49 Acquired absence of other specified parts of digestive tract; Z90.710 Acquired absence of both cervix and uterus; Z98.890 Other specified postprocedural states; Z72.89 Other problems related to lifestyle; Z79.899 Other long term (current) drug therapy
CPT/HCPCS: 72131; 96372; 99284; J1885; J2270

== ENCOUNTER 2021-06-26 01:27 | Emergency (ER) | payer MEDICAID ==
[~2021-06-26] VITALS: Ht 162.6 cm; Wt 58.6 kg
[~2021-06-26 01:27] MED LIST changes: +ORPH100T2 PO
[2021-06-26] MEDS ORDERED: naproxen 500mg tablet PO ONE (01:50)
--- NOTE | 2021-06-26 05:17 | NUR ---
Pt to room 10 left complaints of right to bilat knee pains. states that her bones are becoming more weak. 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 States that pain is 10 out of 10. However pt states that she did not re injure herself. Insists that this is part of her bone degenerative dx, and needs increased meds for pain. AAOxs3. Resp even and unlabored. Skin w/d/i.
[2021-06-26] MEDS ORDERED: morphine 4 MG/ML inj SYRINge IM ONE (06:35)
[2021-06-26 06:56] VITALS: BP 137/84
== END 2021-06-26 06:55 | disposition home or self-care (01) ==
LOC: ER 06:53
DX: M25.561 Pain in right knee (principal); G43.909 Migraine, unspecified, not intractable, without status migrainosus; J44.9 Chronic obstructive pulmonary disease, unspecified; G89.29 Other chronic pain; F17.200 Nicotine dependence, unspecified, uncomplicated; Z87.442 Personal history of urinary calculi; Z87.440 Personal history of urinary (tract) infections; Z90.89 Acquired absence of other organs; Z90.49 Acquired absence of other specified parts of digestive tract; Z90.710 Acquired absence of both cervix and uterus; Z98.890 Other specified postprocedural states; Z79.899 Other long term (current) drug therapy
CPT/HCPCS: 29505; 73564; 96372; 99284; J2270

== ENCOUNTER 2021-07-13 21:57 | Emergency (ER) | payer MEDICAID ==
[~2021-07-13] VITALS: Ht 160 cm; Wt 62.2 kg
[~2021-07-13 21:57] MED LIST changes: -AMYL1CAP57 PO
[2021-07-13] MEDS ORDERED: ketorolac trometh inj. 60 MG/2 ML VIAL IM ONE (23:05)
[2021-07-13] MEDS ORDERED: ondansetron 4mg rapidly disintigrating tab PO ONE (23:05)
[2021-07-13] MEDS ORDERED: morphine 4 MG/ML inj SYRINge IM ONE (23:05)
[2021-07-13 23:47] VITALS: BP 140/98
== END 2021-07-14 00:59 | disposition home or self-care (01) ==
LOC: ER 21:57
DX: S89.91XA Unspecified injury of right lower leg, initial encounter (principal); M25.561 Pain in right knee; G43.909 Migraine, unspecified, not intractable, without status migrainosus; I10 Essential (primary) hypertension; G89.29 Other chronic pain; J44.9 Chronic obstructive pulmonary disease, unspecified; Z87.442 Personal history of urinary calculi; Z87.440 Personal history of urinary (tract) infections; Z90.89 Acquired absence of other organs; Z90.49 Acquired absence of other specified parts of digestive tract; Z90.710 Acquired absence of both cervix and uterus; Z98.890 Other specified postprocedural states; Z79.899 Other long term (current) drug therapy; W19.XXXA Unspecified fall, initial encounter; Y93.01 Activity, walking, marching and hiking; Y92.89 Other specified places as the place of occurrence of the external cause; Y99.8 Other external cause status
CPT/HCPCS: 73564; 96372; 99284; J1885; J2270

== ENCOUNTER 2021-07-16 07:45 | Emergency (ER) | payer MEDICAID ==
[~2021-07-16] VITALS: Ht 160 cm; Wt 60.0 kg
[2021-07-16 07:47] VITALS: BP 167/77
[2021-07-16] MEDS ORDERED: ondansetron 4mg rapidly disintigrating tab PO ONE (08:30)
[2021-07-16] MEDS ORDERED: morphine 4 MG/ML inj SYRINge IM ONE (08:30)
== END 2021-07-16 09:13 | disposition home or self-care (01) ==
LOC: ER 07:46 → EEVIPCON 07:46 → ER 09:13
DX: G89.29 Other chronic pain (principal); M25.561 Pain in right knee; I10 Essential (primary) hypertension; J44.9 Chronic obstructive pulmonary disease, unspecified; G43.909 Migraine, unspecified, not intractable, without status migrainosus; F17.210 Nicotine dependence, cigarettes, uncomplicated; Z79.899 Other long term (current) drug therapy
CPT/HCPCS: 96372; 99284; J2270

== ENCOUNTER 2021-07-30 10:28 | Emergency (ER) | payer MEDICAID ==
[~2021-07-30] VITALS: Ht 162.6 cm; Wt 61.5 kg
[2021-07-30 10:35] VITALS: BP 156/90
[2021-07-30] MEDS ORDERED: ketorolac trometh. 30mg/ml inj. IM ONE (11:10)
[2021-07-30] MEDS ORDERED: diazepam 5mg tablet PO ONE (11:10)
[2021-07-30] MEDS ORDERED: MELO-102 PO (12:23)
[2021-07-30] MEDS ORDERED: CYCL-394 PO (12:23)
[2021-07-30] MEDS ORDERED: OXYC-145 PO (12:27)
== END 2021-07-30 12:40 | disposition home or self-care (01) ==
LOC: ER 10:29
DX: G89.11 Acute pain due to trauma (principal); M54.59 Other low back pain; I10 Essential (primary) hypertension; J44.9 Chronic obstructive pulmonary disease, unspecified; G43.909 Migraine, unspecified, not intractable, without status migrainosus; G89.29 Other chronic pain; M54.9 Dorsalgia, unspecified; Z87.81 Personal history of (healed) traumatic fracture; Z79.899 Other long term (current) drug therapy
CPT/HCPCS: 72100; 96372; 99283; J1885

== ENCOUNTER 2021-10-14 20:03 | Emergency (ER) | payer MEDICAID ==
[~2021-10-14] VITALS: Ht 162.6 cm; Wt 61.4 kg
[~2021-10-14 20:03] MED LIST changes: +MELO-102 PO; +OXYC-145 PO
[2021-10-15] MEDS ORDERED: fentaNYL/PF 50MCG/1 ML 2ML syringe IV ONE (01:30)
[2021-10-15] MEDS ORDERED: diazepam inj 5 MG/ML inj. IV ONE (01:30)
[2021-10-15] MEDS ORDERED: ketorolac trometh. 30mg/ml inj. IV ONE (01:30)
[2021-10-15] MEDS ORDERED: acetaminophen 325mg tablet PO ONE (01:30)
[2021-10-15] MEDS ORDERED: CYCL-1 PO (02:25)
[2021-10-15] MEDS ORDERED: MELO-100 PO (02:25)
[2021-10-15] MEDS ORDERED: HYDR-3965 PO (02:25)
[2021-10-15 02:42] VITALS: BP 130/83
== END 2021-10-15 02:45 | disposition home or self-care (01) ==
LOC: ER 20:03
DX: M54.50 Low back pain, unspecified (principal); M81.0 Age-related osteoporosis without current pathological fracture; G43.909 Migraine, unspecified, not intractable, without status migrainosus; I10 Essential (primary) hypertension; J44.9 Chronic obstructive pulmonary disease, unspecified; G89.29 Other chronic pain; Z87.442 Personal history of urinary calculi; Z87.440 Personal history of urinary (tract) infections; Z90.89 Acquired absence of other organs; Z90.49 Acquired absence of other specified parts of digestive tract; Z90.710 Acquired absence of both cervix and uterus; Z98.890 Other specified postprocedural states; Z79.899 Other long term (current) drug therapy
CPT/HCPCS: 72100; 96374; 96375; 99284; J1885; J3010; J3360

== ENCOUNTER 2021-11-19 21:39 | Emergency (ER) | payer MEDICAID ==
[~2021-11-19] VITALS: Ht 162.6 cm; Wt 63.6 kg
[~2021-11-19 21:39] MED LIST changes: +CYCL-1 PO; +MELO-100 PO
--- NOTE | 2021-11-19 22:09 | NUR ---
ASSUMED CARE OF PT. AWAKE AND ALERT. S/P FQLL FROM A HORSE. 2 HOURS PRIOR TO ARRIVAL. C COLLAR IN PLACE. C/ONECK PAIN, BACK PAIN, AND VELIA HIP PAIN. WILL NOTIFISHENG [place].
[2021-11-19] MEDS ORDERED: morphine 4 MG/ML inj SYRINge IV ONE (22:35)
[2021-11-19] MEDS ORDERED: ondansetron/PF 4mg/2ml inj IV ONE (22:55)
[2021-11-19 23:05] LABS: HCG SERUM QL NEGATIVE
[2021-11-19 23:10] LABS: ALANINE AMINOTRANSFERASE 24 U/L (12-78); ALBUMIN 4.1 G/DL (3.4-5.0); ALBUMIN/GLOBULIN RATIO 1.3 (1.1-1.5); ALKALINE PHOSPHATASE 147 IU/L (46-116); ANION GAP 10 (8-16); ASPARTATE AMINO TRANSFERASE 28 U/L (10-37); BILIRUBIN,TOTAL 0.3 MG/DL (0.1-1.0); BLOOD UREA NITROGEN 14 MG/DL (7-18); BUN/CREATININE RATIO 16.9 (6.6-38.0); CALCIUM 9.4 MG/DL (8.5-10.1); CHLORIDE 112 MMOL/L (99-107); CREATININE 0.83 MG/DL (0.40-0.90); ETHANOL < 0.010 GM/DL (0.0-0.010); GLUCOSE 94 MG/DL (70-104); POTASSIUM 3.4 MMOL/L (3.5-5.1); SODIUM 145 MMOL/L (135-145); TOTAL CARBON DIOXIDE 23.2 MMOL/L (24-32); TOTAL PROTEIN 7.3 G/DL (6.4-8.2); eGFR 72 ML/MIN
[2021-11-19 23:29] LABS: BASOPHILS # (AUTO) 0.1 X10'3 (0-0.2); BASOPHILS % (AUTO) 0.4 % (0-1); EOSINOPHILS # (AUTO) 0.1 X10'3 (0-0.9); EOSINOPHILS % (AUTO) 0.7 % (0-6); HEMATOCRIT 35.6 % (35.0-45.0); HEMOGLOBIN 12.2 g/dl (12.0-16.0); LYMPHOCYTES # (AUTO) 1.4 X10'3 (1.1-4.8); LYMPHOCYTES % (AUTO) 9.2 % (21-51); MEAN CORPUSCULAR HEMOGLOBIN 33.8 PG (27.0-31.0); MEAN CORPUSCULAR HGB CONC 34.3 g/dL (33.0-36.5); MEAN CORPUSCULAR VOLUME 98.5 FL (78-98); MEAN PLATELET VOLUME 8.1 FL (7.4-10.4); MONOCYTES # (AUTO) 1.2 X10'3 (0-0.9); MONOCYTES % (AUTO) 8.2 % (2-12); NEUTROPHILS # (AUTO) 12.1 X10'3 (1.8-7.7); NEUTROPHILS % (AUTO) 81.5 % (42-75); PLATELET COUNT 286 X10'3 (140-440); RED BLOOD COUNT 3.61 X10'6 (4.20-5.60); RED CELL DISTRIBUTION WIDTH 13.4 % (11.5-14.5); WHITE BLOOD COUNT 14.9 X10'3 (4.5-11.0)
--- NOTE | 2021-11-20 | NUR ---
MD NOTIFIED OF PT PAIN LEVEL. PER MD WILL SPEAK TO ABOUT TEST RESULTS FIRST.
--- NOTE | 2021-11-20 00:34 | NUR ---
relieving RN for break, pt has been reevaluated by provider, plan to dc home, pt has ride home with family
[2021-11-20] MEDS ORDERED: morphine 4 MG/ML inj SYRINge IV ONE (00:35)
[2021-11-20 01:14] VITALS: BP 129/90
== END 2021-11-20 01:16 | disposition home or self-care (01) ==
LOC: ER 21:39
DX: M54.2 Cervicalgia (principal); M54.59 Other low back pain; G43.909 Migraine, unspecified, not intractable, without status migrainosus; J44.9 Chronic obstructive pulmonary disease, unspecified; Z87.442 Personal history of urinary calculi; G89.29 Other chronic pain; M54.9 Dorsalgia, unspecified; Z87.81 Personal history of (healed) traumatic fracture; Z90.49 Acquired absence of other specified parts of digestive tract; Z79.899 Other long term (current) drug therapy; Z98.890 Other specified postprocedural states; Z79.1 Long term (current) use of non-steroidal anti-inflammatories (NSAID); Z79.2 Long term (current) use of antibiotics
CPT/HCPCS: 36415; 71045; 72125; 72128; 72131; 74177; 80053; 80320; 84703; 85025; 93005; 96374; 96375; 96376; 99285; J2270; J2405; J3490; L0172; 99284

== ENCOUNTER 2022-01-18 01:33 | Emergency (ER) | payer MEDICAID ==
[~2022-01-18] VITALS: Ht 162.6 cm; Wt 66.9 kg
[2022-01-18 02:17] LABS: BASOPHILS # (AUTO) 0.1 X10'3 (0-0.2); BASOPHILS % (AUTO) 0.8 % (0-1); EOSINOPHILS # (AUTO) 0.1 X10'3 (0-0.9); EOSINOPHILS % (AUTO) 0.9 % (0-6); HEMATOCRIT 41.8 % (35.0-45.0); HEMOGLOBIN 14.5 g/dl (12.0-16.0); LYMPHOCYTES # (AUTO) 2.5 X10'3 (1.1-4.8); LYMPHOCYTES % (AUTO) 31.4 % (21-51); MEAN CORPUSCULAR HEMOGLOBIN 34.4 PG (27.0-31.0); MEAN CORPUSCULAR HGB CONC 34.6 g/dL (33.0-36.5); MEAN CORPUSCULAR VOLUME 99.5 FL (78-98); MEAN PLATELET VOLUME 7.4 FL (7.4-10.4); MONOCYTES # (AUTO) 0.7 X10'3 (0-0.9); MONOCYTES % (AUTO) 8.6 % (2-12); NEUTROPHILS # (AUTO) 4.7 X10'3 (1.8-7.7); NEUTROPHILS % (AUTO) 58.3 % (42-75); PLATELET COUNT 387 X10'3 (140-440); RED BLOOD COUNT 4.21 X10'6 (4.20-5.60); RED CELL DISTRIBUTION WIDTH 13.8 % (11.5-14.5); WHITE BLOOD COUNT 8.1 X10'3 (4.5-11.0)
[2022-01-18 02:32] LABS: ALANINE AMINOTRANSFERASE 32 U/L (12-78); ALBUMIN 4.6 G/DL (3.4-5.0); ALBUMIN/GLOBULIN RATIO 1.3 (1.1-1.5); ALKALINE PHOSPHATASE 157 IU/L (46-116); ANION GAP 11 (8-16); ASPARTATE AMINO TRANSFERASE 25 U/L (10-37); BILIRUBIN,TOTAL 0.3 MG/DL (0.1-1.0); BLOOD UREA NITROGEN 11 MG/DL (7-18); BUN/CREATININE RATIO 11.7 (6.6-38.0); CALCIUM 10.1 MG/DL (8.5-10.1); CHLORIDE 105 MMOL/L (99-107); CREATININE 0.94 MG/DL (0.40-0.90); GLUCOSE 121 MG/DL (70-104); LIPASE 163 U/L (73-393); POTASSIUM 3.3 MMOL/L (3.5-5.1); SODIUM 139 MMOL/L (135-145); TOTAL CARBON DIOXIDE 22.7 MMOL/L (24-32); TOTAL PROTEIN 8.2 G/DL (6.4-8.2); eGFR 63 ML/MIN
[2022-01-18 02:42] LABS: CLARITY,URINE CLEAR (Clear); COLOR,URINE YELLOW (Yellow); GLUCOSE, URINE NEGATIVE (Neg); KETONES,URINE NEGATIVE (Neg); LEUKOCYTE ESTERASE ,URINE NEGATIVE (Neg); NITRITES, URINE NEGATIVE (Neg); OCCULT BLOOD,URINE SMALL (Neg); PH,URINE 5.5 (4.8-8.0); PROTEIN,URINE NEGATIVE (Neg); UROBILINOGEN,URINE 0.2 E.U/dL (0.2-1.0)
[2022-01-18 02:45] LABS: URINE HCG NEGATIVE (NEG)
[2022-01-18 02:48] LABS: UA COLLECTION TYPE CLN CATCH MIDSTREAM
[2022-01-18] MEDS ORDERED: ondansetron/PF 4mg/2ml inj IV ONE (02:50)
[2022-01-18] MEDS ORDERED: normal saline 1000ML IV soln IVB ONE (02:50)
[2022-01-18] MEDS ORDERED: pantoprazole 40 MG vial IV ONE (02:50)
[2022-01-18] MEDS: morphine 2 MG/ML inj. syringe IV PRN ×3 (02:59→05:38)
[2022-01-18] MEDS ORDERED: iohexol 350MG/ML 100ml bottle IV ONE (03:06)
[2022-01-18 03:08] LABS: WBC,URINE 0-4 /HPF (0-4)
[2022-01-18 03:09] LABS: BACTERIA,URINE NONE SEEN /HPF (Neg); MUCUS STRANDS FEW /LPF (Neg); RBC,URINE 0-2 /HPF (0-2); SQUAMOUS EPITHELIAL CELL,UR FEW /LPF (FEW)
[2022-01-18] MEDS ORDERED: pantoprazole 40MG/NS 100ML BAG 100 ML IV ONE ×2 (03:20→03:25)
[2022-01-18] MEDS ORDERED: POTASSIUM BICARB 20meq eff tab 20 MEQ TABLET.EFF PO ONE (06:55)
--- NOTE | 2022-01-18 07:00 | NUR ---
With the bedrails up, pt climbed out of bed to get her phone that was on the [place] stand.
[2022-01-18 07:14] VITALS: BP 151/91
[2022-01-18] MEDS ORDERED: HYDROmorphone inj. 0.5 MG/0.5 ML DISP.SYRIN IV ONE (07:23)
--- NOTE | 2022-01-18 07:30 | NUR ---
Up to void. Steady gait.
--- NOTE | 2022-01-18 07:55 | NUR ---
Pt given and understands d/c instructions. Ambulatory with a steady gait.
== END 2022-01-18 07:55 | disposition home or self-care (01) ==
LOC: ER 01:34
DX: R10.10 Upper abdominal pain, unspecified (principal); G43.909 Migraine, unspecified, not intractable, without status migrainosus; J44.9 Chronic obstructive pulmonary disease, unspecified; G89.29 Other chronic pain; M54.50 Low back pain, unspecified; F17.200 Nicotine dependence, unspecified, uncomplicated; R11.2 Nausea with vomiting, unspecified; R14.0 Abdominal distension (gaseous); Z98.890 Other specified postprocedural states
CPT/HCPCS: 36415; 74174; 80053; 81001; 81025; 83690; 85025; 96361; 96365; 96375; 96376; 99285; C9113; J1170; J2270; J2405; J3490; J7030; Q9967

== ENCOUNTER 2022-01-20 01:00 | Emergency (ER) | payer MEDICAID ==
[~2022-01-20] VITALS: Ht 162.6 cm; Wt 63.6 kg
--- NOTE | 2022-01-20 02:13 | NUR ---
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
[2022-01-20 03:17] LABS: BASOPHILS % (AUTO) 0.6 % (0-1); EOSINOPHILS # (AUTO) 0.1 X10'3 (0-0.9); EOSINOPHILS % (AUTO) 1.6 % (0-6); HEMATOCRIT 36.1 % (35.0-45.0); HEMOGLOBIN 12.2 g/dl (12.0-16.0); LYMPHOCYTES # (AUTO) 1.6 X10'3 (1.1-4.8); LYMPHOCYTES % (AUTO) 28.4 % (21-51); MEAN CORPUSCULAR HEMOGLOBIN 34.2 PG (27.0-31.0); MEAN CORPUSCULAR HGB CONC 33.9 g/dL (33.0-36.5); MEAN CORPUSCULAR VOLUME 100.9 FL (78-98); MEAN PLATELET VOLUME 7.8 FL (7.4-10.4); MONOCYTES # (AUTO) 0.5 X10'3 (0-0.9); MONOCYTES % (AUTO) 9.6 % (2-12); NEUTROPHILS # (AUTO) 3.3 X10'3 (1.8-7.7); NEUTROPHILS % (AUTO) 59.8 % (42-75); PLATELET COUNT 299 X10'3 (140-440); RED BLOOD COUNT 3.58 X10'6 (4.20-5.60); RED CELL DISTRIBUTION WIDTH 14.1 % (11.5-14.5); WHITE BLOOD COUNT 5.5 X10'3 (4.5-11.0)
[2022-01-20 03:18] LABS: CLARITY,URINE CLEAR (Clear); COLOR,URINE STRAW (Yellow); GLUCOSE, URINE NEGATIVE (Neg); KETONES,URINE NEGATIVE (Neg); LEUKOCYTE ESTERASE ,URINE NEGATIVE (Neg); NITRITES, URINE NEGATIVE (Neg); OCCULT BLOOD,URINE TRACE-INTACT (Neg); PH,URINE 5.5 (4.8-8.0); PROTEIN,URINE NEGATIVE (Neg); UA COLLECTION TYPE NON-SPECIFIED; UROBILINOGEN,URINE 0.2 E.U/dL (0.2-1.0)
[2022-01-20 03:23] LABS: BACTERIA,URINE FEW /HPF (Neg); RBC,URINE 0-2 /HPF (0-2); SQUAMOUS EPITHELIAL CELL,UR FEW /LPF (FEW); WBC,URINE NONE SEEN /HPF (0-4)
[2022-01-20 03:29] LABS: MUCUS STRANDS NONE SEEN /LPF (Neg)
[2022-01-20 03:32] LABS: ALANINE AMINOTRANSFERASE 26 U/L (12-78); ALBUMIN 4.1 G/DL (3.4-5.0); ALBUMIN/GLOBULIN RATIO 1.3 (1.1-1.5); ALKALINE PHOSPHATASE 141 IU/L (46-116); ANION GAP 10 (8-16); ASPARTATE AMINO TRANSFERASE 17 U/L (10-37); BILIRUBIN,TOTAL 0.2 MG/DL (0.1-1.0); BLOOD UREA NITROGEN 15 MG/DL (7-18); BUN/CREATININE RATIO 14.6 (6.6-38.0); CHLORIDE 110 MMOL/L (99-107); CREATININE 1.03 MG/DL (0.40-0.90); GLUCOSE 89 MG/DL (70-104); POTASSIUM 4.1 MMOL/L (3.5-5.1); SODIUM 144 MMOL/L (135-145); TOTAL CARBON DIOXIDE 24.1 MMOL/L (24-32); TOTAL PROTEIN 7.2 G/DL (6.4-8.2); eGFR 56 ML/MIN
[2022-01-20 03:33] LABS: URINE AMPHETAMINE SCREEN NEGATIVE (Neg); URINE BARBITUATE SCREEN POSITIVE (Neg); URINE BENZODIAZEPINES SCREEN NEGATIVE (Neg); URINE CANNABINOID SCREEN NEGATIVE (Neg); URINE COCAINE SCREEN NEGATIVE (Neg); URINE METHADONE SCREEN NEGATIVE (Neg); URINE OPIATE SCREEN NEGATIVE (Neg); URINE PHENCYCLIDINE SCREEN NEGATIVE (Neg)
[2022-01-20 03:54] LABS: MAGNESIUM 1.9 MG/DL (1.5-2.4)
[2022-01-20] MEDS ORDERED: morphine 2 MG/ML inj. syringe IV ONE (03:55)
[2022-01-20] MEDS ORDERED: ketorolac tromethamine 15mg/ml inj. IV ONE (03:55)
[2022-01-20] MEDS ORDERED: ondansetron/PF 4mg/2ml inj IV ONE (03:55)
[2022-01-20 03:56] LABS: ETHANOL < 0.010 GM/DL (0.0-0.010)
[2022-01-20] MEDS ORDERED: ONDA4TAB12 PO (04:04)
[2022-01-20] MEDS ORDERED: SUCR1ORA12 PO (04:05)
[2022-01-20 04:49] VITALS: BP 105/72
== END 2022-01-20 04:52 | disposition home or self-care (01) ==
LOC: ER 01:01
DX: R10.84 Generalized abdominal pain (principal); G89.29 Other chronic pain; G43.909 Migraine, unspecified, not intractable, without status migrainosus; I10 Essential (primary) hypertension; J44.9 Chronic obstructive pulmonary disease, unspecified; F17.200 Nicotine dependence, unspecified, uncomplicated; Z87.442 Personal history of urinary calculi; Z87.440 Personal history of urinary (tract) infections; Z90.89 Acquired absence of other organs; Z90.49 Acquired absence of other specified parts of digestive tract; Z90.710 Acquired absence of both cervix and uterus; Z98.890 Other specified postprocedural states; Z79.899 Other long term (current) drug therapy
CPT/HCPCS: 36415; 80053; 80305; 80320; 81001; 83735; 85025; 96374; 96375; 99284; J1885; J2270; J2405

== ENCOUNTER 2022-02-15 11:09 | Emergency (ER) | payer MEDICAID ==
[~2022-02-15] VITALS: Ht 162.6 cm; Wt 65.9 kg
[~2022-02-15 11:09] MED LIST changes: +ONDA4TAB12 PO; +SUCR1ORA12 PO
[2022-02-15 11:52] VITALS: BP 138/85
[2022-02-15] MEDS ORDERED: HYDROcodone/acetaminophen 10/325mg tab PO ONE (12:20)
[2022-02-15] MEDS ORDERED: ketorolac trometh. 30mg/ml inj. IM ONE (12:20)
== END 2022-02-15 12:47 | disposition home or self-care (01) ==
LOC: ER 11:10
DX: G89.28 Other chronic postprocedural pain (principal); M25.561 Pain in right knee; J44.9 Chronic obstructive pulmonary disease, unspecified; I10 Essential (primary) hypertension; G43.909 Migraine, unspecified, not intractable, without status migrainosus; G89.29 Other chronic pain; M54.9 Dorsalgia, unspecified; Z90.49 Acquired absence of other specified parts of digestive tract; Z79.899 Other long term (current) drug therapy
CPT/HCPCS: 73560; 96372; 99283; J1885

== ENCOUNTER 2022-03-14 20:14 | Emergency (ER) | payer MEDICAID ==
[~2022-03-14] VITALS: Ht 160 cm; Wt 66.4 kg
[2022-03-14 20:20] VITALS: BP 174/93
[2022-03-14] MEDS ORDERED: morphine 4 MG/ML inj SYRINge IM ONE (22:30)
== END 2022-03-14 22:46 | disposition home or self-care (01) ==
LOC: ER 20:15
DX: M25.561 Pain in right knee (principal); R53.1 Weakness; G43.909 Migraine, unspecified, not intractable, without status migrainosus; I10 Essential (primary) hypertension; J44.9 Chronic obstructive pulmonary disease, unspecified; M19.90 Unspecified osteoarthritis, unspecified site; G89.29 Other chronic pain; Z87.442 Personal history of urinary calculi; Z87.440 Personal history of urinary (tract) infections; Z90.89 Acquired absence of other organs; Z90.49 Acquired absence of other specified parts of digestive tract; Z90.710 Acquired absence of both cervix and uterus; Z98.890 Other specified postprocedural states; Z79.899 Other long term (current) drug therapy
CPT/HCPCS: 96372; 99283; J2270

== ENCOUNTER 2022-04-13 23:03 | Emergency (ER) | payer MEDICAID ==
[~2022-04-13] VITALS: Ht 162.6 cm; Wt 68.2 kg
[2022-04-13 23:06] VITALS: BP 143/85
[2022-04-14] MEDS ORDERED: ONDA4TAB12 PO (06:50)
[2022-04-14] MEDS: ondansetron 4mg rapidly disintigrating tab PO ONE (07:55)
[2022-04-14] MEDS: HYDROmorphone 1 mg/ml syringe IM ONE (07:56)
== END 2022-04-14 08:16 | disposition home or self-care (01) ==
LOC: ER 23:03
DX: M25.561 Pain in right knee (principal); G43.909 Migraine, unspecified, not intractable, without status migrainosus; I10 Essential (primary) hypertension; J44.9 Chronic obstructive pulmonary disease, unspecified; M19.90 Unspecified osteoarthritis, unspecified site; G89.29 Other chronic pain; M54.50 Low back pain, unspecified; Z90.49 Acquired absence of other specified parts of digestive tract; Z98.890 Other specified postprocedural states
CPT/HCPCS: 96372; 99283; J1170

== ENCOUNTER 2022-05-14 12:58 | Emergency (ER) | payer MEDICAID ==
[~2022-05-14] VITALS: Ht 160 cm; Wt 70.5 kg
[2022-05-14 12:59] VITALS: BP 148/88
[2022-05-14] MEDS ORDERED: ondansetron 4mg rapidly disintigrating tab PO ONE (14:40)
[2022-05-14] MEDS ORDERED: morphine 4 MG/ML inj SYRINge IM ONE (14:40)
== END 2022-05-14 15:14 | disposition home or self-care (01) ==
LOC: ER 12:58
DX: M25.561 Pain in right knee (principal); M17.11 Unilateral primary osteoarthritis, right knee; R11.0 Nausea; G43.909 Migraine, unspecified, not intractable, without status migrainosus; J44.9 Chronic obstructive pulmonary disease, unspecified; I10 Essential (primary) hypertension; M19.90 Unspecified osteoarthritis, unspecified site; G89.29 Other chronic pain; Z87.442 Personal history of urinary calculi; Z87.440 Personal history of urinary (tract) infections; Z90.89 Acquired absence of other organs; Z90.49 Acquired absence of other specified parts of digestive tract; Z90.710 Acquired absence of both cervix and uterus; Z98.890 Other specified postprocedural states; Z79.899 Other long term (current) drug therapy
CPT/HCPCS: 96372; 99283; J2270

== ENCOUNTER 2022-07-19 07:21 | Emergency (ER) | payer MEDICAID ==
[~2022-07-19] VITALS: Ht 160 cm; Wt 67.3 kg
[2022-07-19 07:25] VITALS: BP 157/86
[2022-07-19] MEDS: oxyCODONE/APAP 10/325mg tablet PO ONE (09:10)
== END 2022-07-19 09:20 | disposition home or self-care (01) ==
LOC: ER 07:22
DX: M25.561 Pain in right knee (principal); G43.909 Migraine, unspecified, not intractable, without status migrainosus; I10 Essential (primary) hypertension; J44.9 Chronic obstructive pulmonary disease, unspecified; M19.90 Unspecified osteoarthritis, unspecified site; G89.29 Other chronic pain; Z87.442 Personal history of urinary calculi; Z90.49 Acquired absence of other specified parts of digestive tract; Z98.890 Other specified postprocedural states; Z90.710 Acquired absence of both cervix and uterus; Z79.899 Other long term (current) drug therapy; W18.39XA Other fall on same level, initial encounter; Y93.89 Activity, other specified; Y92.89 Other specified places as the place of occurrence of the external cause; Y99.8 Other external cause status
CPT/HCPCS: 73560; 99284; A6449

== ENCOUNTER 2022-08-30 15:59 | Inpatient (IN) | payer MEDICAID ==
[~2022-08-30] VITALS: Ht 162.6 cm; Wt 72.8 kg
[~2022-08-30 15:59] MED LIST changes: -ORPH100T2 PO; +ORPH100T4 PO
[2022-08-30 16:34] LABS: BASOPHILS % (AUTO) 0.8 % (0-1); EOSINOPHILS # (AUTO) 0.1 X10'3 (0-0.9); EOSINOPHILS % (AUTO) 1.3 % (0-6); HEMOGLOBIN 13.3 g/dl (12.0-16.0); LYMPHOCYTES # (AUTO) 1.3 X10'3 (1.1-4.8); LYMPHOCYTES % (AUTO) 21.6 % (21-51); MEAN CORPUSCULAR HGB CONC 34.2 g/dL (33.0-36.5); MEAN CORPUSCULAR VOLUME 93.7 FL (78-98); MEAN PLATELET VOLUME 7.2 FL (7.4-10.4); MONOCYTES # (AUTO) 0.5 X10'3 (0-0.9); NEUTROPHILS # (AUTO) 4.2 X10'3 (1.8-7.7); NEUTROPHILS % (AUTO) 68.3 % (42-75); PLATELET COUNT 330 X10'3 (140-440); RED BLOOD COUNT 4.16 X10'6 (4.20-5.60); RED CELL DISTRIBUTION WIDTH 15.2 % (11.5-14.5); WHITE BLOOD COUNT 6.1 X10'3 (4.5-11.0)
[2022-08-30 16:54] LABS: ALANINE AMINOTRANSFERASE 25 U/L (12-78); ALBUMIN/GLOBULIN RATIO 1.3 (1.1-1.5); ALKALINE PHOSPHATASE 132 IU/L (46-116); ANION GAP 9 (8-16); ASPARTATE AMINO TRANSFERASE 21 U/L (10-37); BILIRUBIN,TOTAL 0.3 MG/DL (0.1-1.0); BLOOD UREA NITROGEN 8 MG/DL (7-18); BUN/CREATININE RATIO 10.4 (10.0-20.0); CALCIUM 8.9 MG/DL (8.5-10.1); CHLORIDE 106 MMOL/L (99-107); CREATININE 0.77 MG/DL (0.40-0.90); GLUCOSE 111 MG/DL (70-104); POTASSIUM 3.3 MMOL/L (3.5-5.1); SODIUM 143 MMOL/L (135-145); TOTAL CARBON DIOXIDE 28.5 MMOL/L (24-32); TOTAL PROTEIN 7.2 G/DL (6.4-8.2); eGFR 78 ML/MIN
[2022-08-30 17:02] LABS: MAGNESIUM 2.1 MG/DL (1.5-2.4)
[2022-08-30] MEDS ORDERED: aspirin 81mg tab.chew PO ONE (17:25)
[2022-08-30] MEDS ORDERED: nitroGLYCERIN 0.4mg SUBLingual tab SL PRN (17:25)
[2022-08-30] MEDS ORDERED: metoprolol tartrate 25mg tablet PO ONE (17:25)
[2022-08-30] MEDS ORDERED: enoxaparin 100mg/ml syringe SUBCUT ONE (17:25)
[2022-08-30] MEDS ORDERED: enoxaparin 30mg/0.3ml syringe SUBCUT ONE (17:30)
[2022-08-30] MEDS ORDERED: enoxaparin 40mg/0.4ml syringe SQ ONE (17:30)
[2022-08-30] MEDS ORDERED: potassium Cl 20 mEq SR tablet PO PRN (17:45)
[2022-08-30] MEDS ORDERED: acetaminophen 325mg tablet PO PRN ×2 (17:45)
[2022-08-30] MEDS ORDERED: ondansetron/PF 4mg/2ml inj IV PRN (17:45)
[2022-08-30] MEDS ORDERED: magnesium Cl slow-release 64mg tablet PO PRN (17:45)
[2022-08-30] MEDS ORDERED: HYDROcodone/acetaminophen 5mg/325mg tablet PO PRN (17:45)
[2022-08-30] MEDS ORDERED: magnesium 2GM in 50ml NS 50 ML IV PRN (17:45)
[2022-08-30] MEDS ORDERED: potassium Cl 40MEQ/1/2NS 520ml 520 ML IV PRN (17:45)
[2022-08-30] MEDS ORDERED: magnesium 4gm in 100ml NS 100 ML IV PRN (17:45)
[2022-08-30] MEDS ORDERED: HYDROcodone/acetaminophen 10/325mg tab PO PRN (17:45)
[2022-08-30] MEDS: normal saline 1000ml 1,000 ML IV SCH (17:54)
[2022-08-30] MEDS ORDERED: LORazepam 0.5 MG tablet PO PRN (18:10)
[2022-08-30] MEDS ORDERED: LORazepam 2 mg/ml vial IV PRN (18:10)
[2022-08-30] MEDS: HYDROchlorothiazide 25mg tablet PO SCH (18:10)
[2022-08-30] MEDS ORDERED: nicotine 14mg patch - 24hr TD ONE (18:10)
[2022-08-30] MEDS ORDERED: ERGO500093 PO (18:15)
[2022-08-30] MEDS ORDERED: CHOL100017 PO (18:15)
[2022-08-30] MEDS ORDERED: ESTR1TAB28 PO (18:15)
[2022-08-30] MEDS ORDERED: GABA-530 PO (18:15)
[2022-08-30] MEDS ORDERED: ONDA-103 PO (18:35)
[2022-08-30] MEDS: morphine 2 MG/ML inj. syringe IV PRN ×3 (18:53→22:12)
[2022-08-30] MEDS ORDERED: hydrALAZINE 20mg/ml inj. IV ONE (19:20)
[2022-08-30] MEDS: lisinopril 10 MG tablet PO SCH (19:57)
[2022-08-30] MEDS: pantoprazole 40mg Tablet.DR PO SCH (19:57)
[2022-08-30 21:00] VITALS: BP_SYST 119; BP_SYST 160; BP_DIAS 65; BP_DIAS 92
[2022-08-30] MEDS ORDERED: temazepam 15mg capsule PO PRN (21:00)
[2022-08-30] MEDS: potassium Cl 20 mEq SR tablet PO PRN (23:41)
[2022-08-31] VITALS (16 sets, daily range): BP systolic 122–162; BP diastolic 76–90
[2022-08-31] MEDS: morphine 2 MG/ML inj. syringe IV PRN ×3 (02:59→12:54)
[2022-08-31] MEDS: potassium Cl 20 mEq SR tablet PO PRN (04:13)
--- NOTE | 2022-08-31 06:50 | NUR ---
Problems reprioritized. Patient report given, questions answered & plan of care reviewed with Sammi AUSTIN
--- NOTE | 2022-08-31 07:04 | NUR ---
Patient in room PCU 3018. I have received report from [facility] AUSTIN and had the opportunity to ask questions and assume patient care.
[2022-08-31 07:37] LABS: BASOPHILS # (AUTO) 0.1 X10'3 (0-0.2); BASOPHILS % (AUTO) 1.1 % (0-1); EOSINOPHILS # (AUTO) 0.1 X10'3 (0-0.9); EOSINOPHILS % (AUTO) 1.8 % (0-6); HEMATOCRIT 38.3 % (35.0-45.0); HEMOGLOBIN 12.9 g/dl (12.0-16.0); LYMPHOCYTES # (AUTO) 1.5 X10'3 (1.1-4.8); LYMPHOCYTES % (AUTO) 27.2 % (21-51); MEAN CORPUSCULAR HEMOGLOBIN 31.8 PG (27.0-31.0); MEAN CORPUSCULAR HGB CONC 33.7 g/dL (33.0-36.5); MEAN CORPUSCULAR VOLUME 94.5 FL (78-98); MEAN PLATELET VOLUME 7.8 FL (7.4-10.4); MONOCYTES # (AUTO) 0.6 X10'3 (0-0.9); MONOCYTES % (AUTO) 11.7 % (2-12); NEUTROPHILS # (AUTO) 3.2 X10'3 (1.8-7.7); NEUTROPHILS % (AUTO) 58.2 % (42-75); PLATELET COUNT 305 X10'3 (140-440); RED BLOOD COUNT 4.05 X10'6 (4.20-5.60); RED CELL DISTRIBUTION WIDTH 15.5 % (11.5-14.5); WHITE BLOOD COUNT 5.5 X10'3 (4.5-11.0)
[2022-08-31] MEDS: lisinopril 10 MG tablet PO SCH (07:47)
[2022-08-31] MEDS ORDERED: enoxaparin 40mg/0.4ml syringe SUBCUT SCH (08:00)
[2022-08-31] MEDS: pantoprazole 40mg Tablet.DR PO SCH (08:03)
[2022-08-31] MEDS: HYDROchlorothiazide 25mg tablet PO SCH (08:03)
[2022-08-31 08:24] LABS: ALANINE AMINOTRANSFERASE 25 U/L (12-78); ALBUMIN 3.5 G/DL (3.4-5.0); ALBUMIN/GLOBULIN RATIO 1.2 (1.1-1.5); ALKALINE PHOSPHATASE 110 IU/L (46-116); ANION GAP 8 (8-16); ASPARTATE AMINO TRANSFERASE 28 U/L (10-37); BILIRUBIN,TOTAL 0.4 MG/DL (0.1-1.0); BLOOD UREA NITROGEN 5 MG/DL (7-18); BUN/CREATININE RATIO 7.8 (10.0-20.0); CALCIUM 8.8 MG/DL (8.5-10.1); CHLORIDE 106 MMOL/L (99-107); CREATININE 0.64 MG/DL (0.40-0.90); GLUCOSE 89 MG/DL (70-104); POTASSIUM 3.6 MMOL/L (3.5-5.1); SODIUM 141 MMOL/L (135-145); TOTAL CARBON DIOXIDE 27.1 MMOL/L (24-32); TOTAL PROTEIN 6.5 G/DL (6.4-8.2); eGFR > 90 ML/MIN
[2022-08-31] MEDS: normal saline 1000ml 1,000 ML IV SCH (08:57)
[2022-08-31] MEDS ORDERED: aminophylline 250mg/10ml inj. IV PRN (09:05)
[2022-08-31] MEDS ORDERED: regadenoson 0.4mg/5ml syringe IV PRN (09:05)
[2022-08-31] MEDS ORDERED: nitroGLYCERIN 0.4mg SUBLingual tab SL PRN (09:05)
[2022-08-31] MEDS ORDERED: metoprolol tartrate 1mg/ml inj IV PRN (09:05)
[2022-08-31 09:50] LABS: BASOPHILS # (AUTO) 0.1 X10'3 (0-0.2); EOSINOPHILS # (AUTO) 0.1 X10'3 (0-0.9); EOSINOPHILS % (AUTO) 1.2 % (0-6); HEMATOCRIT 38.9 % (35.0-45.0); HEMOGLOBIN 13.1 g/dl (12.0-16.0); LYMPHOCYTES # (AUTO) 1.3 X10'3 (1.1-4.8); LYMPHOCYTES % (AUTO) 22.5 % (21-51); MEAN CORPUSCULAR HEMOGLOBIN 31.7 PG (27.0-31.0); MEAN CORPUSCULAR HGB CONC 33.6 g/dL (33.0-36.5); MEAN CORPUSCULAR VOLUME 94.6 FL (78-98); MEAN PLATELET VOLUME 7.4 FL (7.4-10.4); MONOCYTES # (AUTO) 0.6 X10'3 (0-0.9); NEUTROPHILS # (AUTO) 3.9 X10'3 (1.8-7.7); NEUTROPHILS % (AUTO) 65.3 % (42-75); PLATELET COUNT 300 X10'3 (140-440); RED BLOOD COUNT 4.11 X10'6 (4.20-5.60); RED CELL DISTRIBUTION WIDTH 15.6 % (11.5-14.5); WHITE BLOOD COUNT 5.9 X10'3 (4.5-11.0)
[2022-08-31 10:00] LABS: APTT 31 SECONDS (22-32)
[2022-08-31 10:11] LABS: CHOL/HDL RATIO 7.4 (0.00-4.99); CHOLESTEROL 268 MG/DL (0-200); HDL CHOLESTEROL 36 MG/DL (35-60); LDL CHOLESTEROL 153 MG/DL (50-100); TRIGLYCERIDES 306 MG/DL (20-135)
[2022-08-31] MEDS ORDERED: heparin 10,000 units/1 ML INJ IV PRN (10:40)
[2022-08-31] MEDS ORDERED: heparin 25,000 UNIT/250ml bag 250 ML IV PRN (10:40)
[2022-08-31] MEDS ORDERED: heparin 10,000 units/1 ML INJ IV ONE (10:40)
--- NOTE | 2022-08-31 10:59 | NUR ---
patient seen by Flower FELICIANO, is for jerry scan. commenced on cardiac heparin drip, taken to jerry scan at this time will monitor when returns
--- NOTE | 2022-08-31 14:07 | NUR ---
PAGER ID: [phone] MESSAGE: Usha Tele [phone] re: Marc [id number] stress test negative. Do you want to keep heparin gtt going. Pt needs diet order. She is asking about discharge
[2022-08-31] MEDS ORDERED: LISI10TA27 PO (14:34)
[2022-08-31] MEDS ORDERED: ATOR20TA66 PO (14:34)
[2022-08-31] MEDS ORDERED: HYDR25TA4 PO (14:34)
[2022-08-31] MEDS ORDERED: PANT40TA54 PO (14:34)
--- NOTE | 2022-08-31 18:43 | NUR ---
Patient DC home in stable condition per Dr Mejia as stress test was negative. I agree with the charting of Usha AUSTIN
[2022-08-31] MEDS ORDERED: metoprolol tartrate 12.5mg (1/2 tablet) PO SCH (20:00)
[2022-09-01] MEDS ORDERED: atorvastatin 20mg tablet PO SCH (08:00)
[2022-09-01] MEDS ORDERED: aspirin 81mg tab.chew PO SCH (08:30)
== END 2022-08-31 16:02 | disposition home or self-care (01) | DRG 190 ==
LOC: ER 15:59 → ED HOLD 17:45 → PCU 3S 20:55
PROVIDERS: ADMIT Internal Medicine; ATTEND Internal Medicine
PROC: 4A02XM4 Measurement of Cardiac Total Activity, External Approach (ICD-10-PCS; principal; 2022-08-31)
PROC: 3E073KZ Introduction of Other Diagnostic Substance into Coronary Artery, Percutaneous Approach (ICD-10-PCS; 2022-08-31)
DX: I21.4 Non-ST elevation (NSTEMI) myocardial infarction (principal); E87.6 Hypokalemia; R07.89 Other chest pain; F17.210 Nicotine dependence, cigarettes, uncomplicated; I10 Essential (primary) hypertension; I20.9 Angina pectoris, unspecified; Z96.651 Presence of right artificial knee joint; G43.909 Migraine, unspecified, not intractable, without status migrainosus; G89.29 Other chronic pain; J44.9 Chronic obstructive pulmonary disease, unspecified; M81.0 Age-related osteoporosis without current pathological fracture; Z87.442 Personal history of urinary calculi; Z90.710 Acquired absence of both cervix and uterus; Z87.440 Personal history of urinary (tract) infections; Z90.49 Acquired absence of other specified parts of digestive tract; Z79.899 Other long term (current) drug therapy; Z71.6 Tobacco abuse counseling
CPT/HCPCS: 36415; 71045; 78452; 80053; 80061; 83735; 83880; 84484; 85025; 85610; 85730; 87081; 93017; 93306; 99285; A9500; G0378; J0280; J0360; J1644; J1650; J2270; J2785; J7030